=== PATIENT | female | born 1945 | race Caucasian/White ===

== ENCOUNTER 2016-09-14 17:16 | Emergency (ER) | payer MEDICARE, OTHER ==
[2012-12-07 23:44] VITALS: BMI 32.8
[2016-09-14 18:53] LABS: BASOPHILS 0.4 % (0.0-2.0); EOSINOPHILS 2.2 % (0-7); HEMATOCRIT 40.3 % (36.0-48.0); HEMOGLOBIN 12.7 g/dL (12-16); IMMATURE GRANULOCYTES 0.7 % (0-5); LYMPHOCYTES 29.5 % (15-50); MCH 29.7 pg (26.0-34.0); MCHC 31.5 g/dL (31.0-37.0); MCV 94.4 fL (80.0-100.0); MONOCYTES 5.7 % (2-11); NEUTROPHILS 61.5 % (40-80); PLATELET COUNT 252 10x3/uL (130-400); RBC 4.27 10x6/uL (4.00-5.40); RDW 14.7 % (11.5-14.5); WBC 10.3 10x3/uL (4.8-10.8)
[2016-09-14 19:18] LABS: ALBUMIN 3.5 g/dL (3.4-5.0); ANION GAP 9.5 mmol/L (8-16); BILIRUBIN - TOTAL 0.2 mg/dL (0.2-1.3); CARBON DIOXIDE 30.9 mmol/L (21.0-32.0); CREATININE - SERUM 1.2 mg/dL (0.6-1.3); POTASSIUM - SERUM 5.4 mmol/L (3.5-5.1); PROTEIN - SERUM 7.9 g/dL (6.4-8.2)
== END 2016-09-14 20:35 | disposition home or self-care (01) ==
LOC: D.ER 17:16
PROVIDERS: Emergency Medicine
DX: R53.1 Weakness (principal); I10 Essential (primary) hypertension

== ENCOUNTER 2016-11-04 00:41 | Emergency (ER) | payer MEDICARE, OTHER ==
[2012-12-07 23:44] VITALS: BMI 32.8
== END 2016-11-04 03:32 | disposition home or self-care (01) ==
LOC: D.ER 00:41
DX: I48.92 Unspecified atrial flutter (principal); I10 Essential (primary) hypertension; I44.30 Unspecified atrioventricular block

== ENCOUNTER 2017-03-07 09:38 | Observation (INO) | payer MEDICARE, OTHER ==
[~2017-03-07] VITALS: Ht 165.1 cm; Wt 65.9 kg
--- NOTE | ~2017-03-07 | HEMODYNAMI ---
PATIENT:ISAAC RICARDO MEDICAL RECORD: [id number] : 41 LOCATION[facility]# [id number] ADMISSION DATE: 03/07/17 Generatedon:03/08/20179:20 Patient name: ISAAC RICARDO Patient #: [id number] SSN: : 1945 Date of study: 03/08/2017 Page: Of Hemodynamic Procedure Report Patient Data Patient Demographics Procedure consent was obtained First Name: ISAAC Gender: Female Last Name: HALEIGH : 1945 [facility] Initial: S Age: 71 year(s) Patient #: [id number] Race: Unknown Additional ID: [id number] Contact details [address]: [address] [place] [address] State: [place] City: [place] Zip code: [address] Past Medical History Allergies: No known allergies Admission Admission Data Admission Date: 03/07/2017 Admission Time: 11:34 Room #: 2122 Height (in.): 65 BSA: 1.73 (m2) Height (cm.): 165.1 BMI: 24.13 (kg/m2) Weight (lbs.): 145 Weight (kg.): 65.77 Lab Results Lab Result Date: 03/08/2017 Lab Result Time: 0:00 Biochemistry Name Units Result Min Max Creatinine mg/dl 1 --(--*-)-- 0.6 1.3 CBC Name Units Result Min Max Hemoglobin g/dl 11.9 *-(----)-- 13.5 17.5 Procedure Procedure Types Cath Procedure Diagnostic Procedure [facility] w/Coronaries PCI Procedure Coronary Stent Initial Miscellaneous Procedures Moderate Sedation up to 30 minutes Peripheral Cath Diagnostic Procedure Cath Peripheral Four Vessel Arteriogram Procedure Description Procedure Date Procedure Date: 03/08/2017 Procedure Start Time: 8:46 Procedure End Time: 9:09 Procedure Staff Name Function Wendie Yo RT Monitor Chuy iMles RN Hotshot Superintendent Gustavo Dickinson MD Performing Physician Mallorie Werner RN Nurse Nahomy Lalo RT Scrub Procedure Data Cath Procedure Fluoroscopy Diagnostic fluoroscopy Total fluoroscopy Time: 5.3 time: 5.3 min min Diagnostic fluoroscopy Total fluoroscopy dose: 429 dose: 429 mGy mGy Contrast Material Contrast Material Type Amount (ml) Isovue 300 103 Entry Location Entry Primary Successful Side Size Upsize Upsize Entry Closure Succes sful Closure Location (Fr) 1 (Fr) 2 (Fr) Remarks Device Remarks Femoral Right 5 Fr 6 Fr Exoseal artery Short Estimated blood loss: 10 ml Diagnostic catheters Device Type Used For End Catheter Placement Cordis 5Fr JL 4.0 Left Coronary Catheter (MP) Angiography Cordis 5Fr 3DRC Catheter Right Coronary (MP) Angiography Cordis 5Fr 3DRC Catheter Cervical carotid (MP) (common) arteriography Cordis 5Fr Pigtail LV Angiography Catheter (MP) Procedure Complications No complications Procedure Medications Medication Administration Route Dosage Oxygen NC 2 l/min Heparin Flush Bag added to field 2 bags (1000units/500ml NS) Lidocaine 2% added to field 20 Versed I.V. 1 mg Fentanyl I.V. 50 mcg Versed I.V. 0.5 mg Fentanyl I.V. 25 mcg Fentanyl I.V. 25 mcg Versed I.V. 0.5 mg Heparin Bolus I.V. 4000 units Plavix P.O. 75 mg Hemodynamics Rest BSA: 1.73 (m2) HGB: 11.9 (g/dl) O2 Consumption: Estimated: 160.48 (ml/min) O2 Co nsumption indexed: Estimated:92.76 (ml/min/m) Heart Rate: 73 (bpm) Pressure Samples Time Site Value (mmHg) Purpose Heart Use Rate(bpm) 8:54 LV 159/17,21 Snapshot 78 8:55 LV 148/21,23 Pullback 75 8:55 AO 144/65(100) Pullback 75 Gradients Valve Time Site 1 Site 2 Mean SEP/DFP Peak To Heart Use (mmHg) (sec/min) Peak Rate (mmHg) (bpm) Aortic 8:55 LV AO 8 14 4 75 148/21,23 144/65(100) Calculations Valve P-P Mean Valve Index Valve Source Name Gradient Area Flow (cm2) Aortic 4 8 4 8 Snapshots Pre Cath Intra NCS Post Cath Vital Signs Time Heart Resp SPO2 etCO2 [id number] NIBP (mmHg) Rhythm Pain Sedation Rate (ipm) (%) (mmHg) (mmHg) Status Level (bpm) 8:30:53 74 15 100 0 0 Measuring NSR 0 (11) 10(A) , No pain 8:32:15 74 15 100 0 0 Time NSR 0 (11) 10(A) Exceeded , No pain 8:37:14 74 22 99 0 0 Measuring NSR 0 (11) 10(A) , No pain 8:37:51 73 22 100 0 0 Time NSR 0 (11) 10(A) Exceeded , No pain 8:40:55 70 17 100 0 0 164/72(131) NSR 0 (11) 10(A) , No pain 8:45:19 72 16 99 0 0 161/76(122) NSR 0 (11) 9(A) , No pain 8:49:37 75 15 98 0 0 150/83(115) NSR 0 (11) 9(A) , No pain 8:53:57 79 16 99 0 0 151/76(113) NSR 0 (11) 9(A) , No pain 8:58:20 76 16 99 0 0 148/72(114) NSR 0 (11) 9(A) , No pain 9:02:40 77 14 99 0 0 137/76(105) NSR 0 (11) 9(A) , No pain 9:06:54 80 15 99 0 0 142/82(113) NSR 0 (11) 10(A) , No pain Medications Time Medication Route Dose Verified Delivered Reason Notes Effectiveness by by 8:38:10 Oxygen NC 2 Gustavo Mallorie Per physician l/min St. Omar Werner RN, MD 8:38:18 Heparin Flush added 2 Gustavo Gustavo [facility] (1000units/500ml field MD LUNA NS) 8:38:28 Lidocaine 2% added 20ml Gustavo Gustavo used for to vial [place] procedure field MD LUNA 8:38:34 Versed I.V. 1 mg Gustavo Mallorie for sedation St. Omar Werner RN, MD 8:38:41 Fentanyl I.V. 50 Gustavo Mallorie for sedation mcg St. Omar Werner RN, MD 8:42:35 Versed I.V. 0.5 Gustavo Mallorie for sedation mg St. Omar Werner RN, MD 8:42:38 Fentanyl I.V. 25 Gustavo Mallorie for sedation mcg St. Omar Werner RN, MD 8:46:33 Fentanyl I.V. 25 Gustavo [place] for sedation mcg St. Omar Werner RN, MD 8:46:36 Versed I.V. 0.5 Gustavo [place] for sedation mg St. Omar Werner RN, MD 8:56:41 Heparin Bolus I.V. 4000 Gustavo Nobles for dose units St. Omar Werner RN anticoagulation verified MD with dr thompson 9:08:11 Plavix P.O. 75 mg Gustavo Mallorie for St. Omar Werner RN antiplatelet MD therapy Procedure Log Time Note 8:12:46 Chuy Miles RN sent for patient. Start room use. 8:21:55 Patient received from PCU to CCL 1 Alert and oriented. Tansferred to table in Supine position. 8:29:03 Vital chart was started 8:30:30 Warm blankets applied, and thiago hugger turned on for patient comfort. 8:30:31 Correct patient and procedure confirmed by team. 8:30:34 Signed procedure consent form obtained from patient. 8:30:35 ECG and BP/O2 sat monitors applied to patient. 8:31:55 Rhythm: sinus rhythm 8:31:58 Time tracking: Regular hours 8:32:02 Plan of Care:Hemodynamics will remain stable., Cardiac rhythm will remain stable., Comfort level will be maintained., Respiratory function will remain adequate., Patient/ family verbilizes understanding of procedure., Procedure tolerated without complication., Recovers from procedure without complications.. 8:32:06 Baseline sample Acquired. 8:32:16 H&P Date Dictated: 03/08/2017 Within 30 days and on chart.. 8:32:18 Pre-op teaching completed and patient verbalized understanding. 8:32:18 Pre-procedure instructions explained to patient. 8:32:19 Family in waiting room. 8:32:32 H&P Date Dictated: 03/08/2017 ER History on chart.. 8:32:38 Patient NPO since Midnight. 8:32:46 Patient allergic to No known allergies 8:32:48 Is the patient allergic to Iodine/contrast media? No. 8:32:52 Is patient on blood thinner?Yes 8:32:54 ACC The patient was administered the following blood thiners within the last 24 hours: ACCPlavix 8:32:58 Patient diabetic? No. 8:33:02 Previous problem with sedation/anesthesia? No ? 8:33:03 Snore? Yes 8:33:04 Sleep apnea? No 8:33:06 Opens mouth fully? Yes 8:33:06 Deviated septum? No 8:33:07 Sticks out tongue? Yes 8:33:16 Airway obstruction? No ? 8:33:19 Dentures? No ? 8:33:22 Pre procedure: right dorsailis pedis pulse 2+ Normal; easily identifiable; not easily obliterated 8:33:24 Patient pain scale 0/10 ?. 8:33:33 IV patent on arrival in left forearm with 0.9% NaCl at [facility]. 8:33:42 Lab results completed and on chart. 8:33:44 Right groin area was prepped with chlora-prep and draped in sterile fashion 8:33:46 Sharps counted by scrub and verified by R.N. 8:33:46 Alarms reviewed by R. N. 8:36:18 Lab Result : Hemoglobin 11.9 g/dl 8:36:18 Lab Result : Creatinine 1 mg/dl 8:36:44 Patient Height : 65 cm 8:36:46 Patient Weight : 145 kg 8:36:54 Use device set Femoral Dx 8:36:55 Acist Syringe opened to sterile field. 8:36:56 Medline Cath Pack opened to sterile field. 8:36:56 Bag Decanter opened to sterile field. 8:36:57 Terumo 5Fr [place] Sheath opened to sterile field. 8:36:58 Acist Hand Control opened to sterile field. 8:36:59 Acist Manifold opened to sterile field. 8:37:00 Tegaderm 4 x 4 opened to sterile field. 8:37:00 Diagnostic Infinity 5Fr Multipack catheter opened to sterile field. 8:37:34 Final Timeout: patient, procedure, and site verified with staff and physician. All members of the team are in agreement. 8:37:36 Right groin site verified by team. 8:37:38 Physical assessment completed. ASA score P 2 - A patient with mild systemic disease as per Gustavo Dickinson MD. 8:37:41 Sedation plan: IV Moderate Sedation Versed, Fentanyl 8:38:10 Oxygen 2 l/min NC was administered by Mallorie Werner RN; Per physician; 8:38:18 Heparin Flush Bag (1000units/500ml NS) 2 bags added to field was administered by Gustavo Dickinson MD; used for procedure; 8:38:28 Lidocaine 2% 20ml vial added to field was administered by Gustavo Dickinson MD; used for procedure; 8:38:34 Versed 1 mg I.V. was administered by Mallorie Werner RN; for sedation; 8:38:41 Fentanyl 50 mcg I.V. was administered by Mallorie Werner RN; for sedation; 8:41:08 Zero performed for pressure channel P1 8:42:35 Versed 0.5 mg I.V. was administered by Mallorie Werner RN; for sedation; 8:42:38 Fentanyl 25 mcg I.V. was administered by Mallorie Werner RN; for sedation; 8:46:13 Procedure started. 8:46:14 Full Disclosure recording started 8:46:23 Local anesthetic to right femoral artery with Lidocaine 2% by Gustavo Dickinson MD.INITIAL ACCESS ONLY 8:46:33 Fentanyl 25 mcg I.V. was administered by Mallorie Werner RN; for sedation; 8:46:36 Versed 0.5 mg I.V. was administered by Mallorie Werner RN; for sedation; 8:46:48 A 5 Fr sheath was inserted into the Right Femoral artery 8:47:15 A Cordis 5Fr JL 4.0 Catheter (MP) was advanced over the wire and used for Left Coronary Angiography. 8:49:43 Catheter removed. 8:49:57 A Cordis 5Fr 3DRC Catheter (MP) was advanced over the wire and used for Right Coronary Angiography. 8:50:55 A Cordis 5Fr 3DRC Catheter (MP) was advanced over the wire and used for Cervical carotid (common) arteriography. 8:51:13 Terumo 6Fr [place] Sheath opened to sterile field. 8:51:14 Merit BasixCompak Inflation Kit opened to sterile field. 8:53:01 Catheter removed. 8:53:24 Vieyra Whisper J 300cm 0.014 guide wire opened to sterile field. 8:53:49 A Cordis 5Fr Pigtail Catheter (MP) was advanced over the wire and used for LV Angiography. 8:55:02 LV gram done using NELSON 8:55:07 EF : 55 % 8:55:11 Injector settings: Ml/sec: 10, Volume: 20, 8:55:15 Catheter removed. 8:55:39 Sheath upsized to a 6 Fr Short. 8:55:53 6 Fr HS I guide catheter was inserted over the wire 8:55:59 Medtronic Launcher 6Fr HS I guide catheter opened to sterile field. 8:56:41 Heparin Bolus 4000 units I.V. was administered by Mallorie Werner RN; for anticoagulation; dose verified with dr thompson 8:58:23 Whisper wire advanced. 9:02:23 Inflation Number: 1 A [place] OTW 3.0 x 12 stent was prepped and advanced across the Mid RCA. The stent was deployed at 14 EDSON for 0:29 (min:sec). 9:02:40 Stent catheter was removed intact over wire. 9:02:41 Guide catheter removed. 9:02:41 Balloon removed over the wire. 9:02:53 Cordis 6Fr Exoseal opened to sterile field. 9:03:03 Sheath removed intact; hemostasis achieved with Exoseal to the Right Femoral artery. 9:03:05 Procedure ended.(Physican Out) 9:03:15 Fluoroscopy time 05.30 minutes. 9:03:19 Fluoroscopy dose: 429 mGy 9:03:19 Flurop Dose total: 429 9:03:23 Contrast amount:Isovue 300 103ml. 9:03:25 Sharps counted by scrub and verified by R.N. 9:03:27 Insertion/operative site no bleeding no hematoma. 9:03:30 Post-op/insertion site Right Femoral artery dressed using a 4 x 4 and Tegaderm. 9:03:33 Post right femoral artery:stable, clean and dry 9:03:36 Post Procedure Pulses reassessed and unchanged 9:03:39 Post-procedure physical assessment completed. ASA score P 2 - A patient with mild systemic disease as per Gustaov Dickinson MD. 9:03:41 Post procedure rhythm: unchanged. 9:03:44 Estimated blood loss: 10 ml 9:03:45 Patient needs reinforcement of post procedure teaching. 9:03:45 Post procedure instruction explained to patient.Patient verbalizes understanding. 9:04:26 Procedure type changed to Cath procedure, Diagnostic procedure, LHC, LHC w/Coronaries, PCI procedure, Coronary Stent Initial, Miscellaneous Procedures, Moderate Sedation up to 30 minutes, Peripheral Cath Diagnostic Procedure, Cath Peripheral, Four Vessel Arteriogram 9:04:38 Procedure Complication : No complications 9:04:41 Procedure and supply charges have been captured, reviewed, submitted and are correct. 9:07:02 Merit 260 J wire (No Cost) opened to sterile field. 9:07:08 See physician's report for complete and final results. 9:08:11 Plavix 75 mg P.O. was administered by Mallorie Werner RN; for antiplatelet therapy; 9:09:01 Femstop placed over the right femoral artery at 150 mmHg. Hemostasis achieved. 9:09:01 Post right femoral artery:hematoma 9:09:15 Vital chart was stopped 9:09:17 Report given to PCU. 9:09:21 Patient transfered to PCU with Bed. 9:09:28 Full Disclosure recording stopped 9::28 Procedure ended. 9:09:31 End room use (Document Last) Intervention Summary Intervention Notes Time ActionType Lesion and Equipment Action# Pressure Duration Attributes Used 9:02:23 Place stent Mid RCA [place] OTW 1 14 00:29 3.0 x 12 stent Device Usage Item Name Manufacture Quantity Catalog Hospital Part Current Minimal Lot# / Number Charge Number Stock Stock Serial# Code Acist Acist 1 26626 [id number] 629320 514911 20 Syringe Medical Systems Inc Bag Microtek 1 2002S 440556 52279 022967 5 Teikon [employer] Inc. Medline Cardinal 1 [id number] 283999 39821 990606 5 Cath Pack Health Terumo 5Fr Terumo 1 [id number] 536729 273019 527330 40 [place] Sheath Acist Hand Acist 1 87561 670841 157211 229418 5 CloudVolumes Medical Systems Inc Acist Acist 1 14450 926615 827264 028433 5 ExaDigm Medical Systems Inc Diagnostic Cardinal 1 AE1600 695702 82006 534780 30 MTA [employer] Lab 5Fr Multipack catheter Tegaderm 4 3M 1 1626W 473918 601299 191801 5 x 4 Cordis 5Fr Cardinal 1 100172 5 JL 4.0 Health Catheter (MP) Cordis 5Fr Cardinal 1 320736 5 3DRC Health Catheter (MP) Terumo 6Fr Terumo 1 ONO812 349708 689863 764737 40 [place] Sheath Merit Merit 1 [id number] 748860 614664 896514 15 BasixCompak Medical Inflation Kit Vieyra Vieyra 1 [id number] 942599 075887 555085 5 Whisper J Vascular 300cm 0.014 guide wire Cordis 5Fr Cardinal 1 540649 5 Pigtail Health Catheter (MP) Medtronic Medtronic 1 [id number] 718762 30612 752438 1 Launcher 6Fr HS I guide catheter Lorenzo OTW Medtronic 1 [id number] 112326 222410 210329 5 [id number] 3.0 x 12 stent Cordis 6Fr Cardinal 1 EX600 986358 718172 910075 10 [facility] [employer] [facility] Merit 260 J Unknown 1 0 0 wire (No Cost) Signature Audit [place] Stage Time Signature Unsigned Intra-Procedure 03/08/2017 Wendie Yo 9:09:48 AM Counts RT(R) RT(R) 03/08/2017 9:19:43 AM Intra-Procedure 03/08/2017 Wendie 9:20:48 AM Counts RT(R) Signatures Monitor : Wendie Signature : Counts RT Date : Time : [address] [place] [address]
[2017-03-07 10:00] LABS: BASOPHILS 0.4 % (0-2); EOSINOPHILS 3.4 % (0-7); HEMATOCRIT 37.6 % (36.0-48.0); HEMOGLOBIN 11.9 g/dL (12-16); IMMATURE GRANULOCYTES 0.2 % (0-5); LYMPHOCYTES 30.1 % (15-50); MCH 29.2 pg (26.0-34.0); MCHC 31.6 g/dL (31.0-37.0); MCV 92.2 fL (80.0-100.0); MEAN PLATELET VOLUME 9.9 fL (7.4-10.4); MONOCYTES 7.2 % (2-11); NEUTROPHILS 58.7 % (40-80); PLATELET COUNT 221 10x3/uL (130-400); RBC 4.08 10x6/uL (4.00-5.40); RDW 14.6 % (11.5-14.5); WBC 8.5 10x3/uL (4.8-10.8)
[2017-03-07 10:13] LABS: ALKALINE PHOSPHATASE 119 U/L (46-116); ALT (SGPT) 18 U/L (10-68); BILIRUBIN - TOTAL 0.29 mg/dL (0.2-1.3); CALC OSMOLALITY 282 mosm/kg (275-300); CALCIUM 8.9 mg/dL (8.5-10.1); CARBON DIOXIDE 29.1 mmol/L (21.0-32.0); CHLORIDE - SERUM 106 mmol/L (98-107); GLUCOSE 132 mg/dL (74-106); POTASSIUM - SERUM 4.4 mmol/L (3.5-5.1); PROTEIN - SERUM 7.1 g/dL (6.4-8.2); SODIUM 140 mmol/L (136-145); UREA NITROGEN 17 mg/dL (7-18); eGFR NON AFRICAN AMERICAN 58 mL/min (90-120)
[2017-03-07 10:24] LABS: CKMB 0.4 U/L (0.0-3.6); CREATINE KINASE 26 UL (21-215)
[2017-03-07 10:25] LABS: TROPONIN-I < 0.017 ng/mL (0.000-0.060)
[2017-03-07] MEDS ORDERED: K-DUR20 MEQ PO (12:54)
[2017-03-07] MEDS ORDERED: BUPROPION XL300 MG PO (12:55)
[2017-03-07] MEDS ORDERED: TENORMIN25 MG PO (12:56)
[2017-03-07] MEDS ORDERED: LANOXIN125 MCG PO (12:57)
[2017-03-07] MEDS ORDERED: NORTRIPTYLINE H50 MG PO (12:58)
[2017-03-07] MEDS ORDERED: BAYER CHEWABLE81 MG PO (13:00)
[2017-03-07] MEDS ORDERED: XANAX0.25 MG PO (13:00)
[2017-03-07] MEDS ORDERED: PROTONIX20 MG PO (13:04)
[2017-03-07 13:11] VITALS: Ht 165.1 cm; Wt 65.9 kg
--- NOTE | 2017-03-07 13:21 | NUR ---
RECIEVED FROM ER. ALERT AND ORIENTED. IV TO LEFT FA. TELELEMERTY SHOWS SB 59 ORIENTED TO ROOM . SR UP WITH CALL LIGHT IN REACH
[2017-03-07 15:33] LABS: TROPONIN-I 0.093 ng/mL (0.000-0.060)
[2017-03-07 16:00] VITALS: BP 133/67
--- NOTE | 2017-03-07 19:30 | NUR ---
RECEIVED PT IN BED AAOX4 RESP UNLABORED DENIES ANY PAIN OR DISCOMFORT AT THIS TIME
[2017-03-07 20:59] LABS: TROPONIN-I 0.512 ng/mL (0.000-0.060)
[2017-03-07 21:40] VITALS: BP 179/72
[2017-03-07] MEDS ORDERED: PLAVIX75 MG PO (22:34)
[2017-03-07] MEDS ORDERED: TIMOPTIC 0.5 % O5 ML EACH EYE (22:34)
[2017-03-08 04:05] LABS: TROPONIN-I 0.531 ng/mL (0.000-0.060)
[2017-03-08 04:36] VITALS: BP 163/59
--- NOTE | 2017-03-08 07:20 | NUR ---
ASSESSMENT DONE. DENIES NEEDS.
[2017-03-08 07:36] LABS: BASOPHILS 0.5 % (0-2); EOSINOPHILS 2.3 % (0-7); HEMATOCRIT 36.2 % (36.0-48.0); HEMOGLOBIN 11.5 g/dL (12-16); IMMATURE GRANULOCYTES 0.4 % (0-5); LYMPHOCYTES 18.9 % (15-50); MCH 29.1 pg (26.0-34.0); MCHC 31.8 g/dL (31.0-37.0); MCV 91.6 fL (80.0-100.0); MEAN PLATELET VOLUME 10.3 fL (7.4-10.4); MONOCYTES 7.9 % (2-11); PLATELET COUNT 223 10x3/uL (130-400); RBC 3.95 10x6/uL (4.00-5.40); RDW 14.7 % (11.5-14.5); WBC 8.3 10x3/uL (4.8-10.8)
[2017-03-08 07:39] LABS: ANION GAP 12.9 mmol/L (8-16); CALCIUM 8.9 mg/dL (8.5-10.1); CARBON DIOXIDE 27.4 mmol/L (21.0-32.0); POTASSIUM - SERUM 4.3 mmol/L (3.5-5.1)
[2017-03-08 08:00] VITALS: BP 176/61
--- NOTE | 2017-03-08 08:30 | NUR ---
TO TAG MARKER PER BED
--- NOTE | 2017-03-08 09:15 | NUR ---
RETURN FROM CATH FEMSTOP TO RT GROIN, HEMATOMA NOTED. PULSE PALP.
--- NOTE | 2017-03-08 09:34 | NUR ---
BACK FROM SAND ANALYST. AT BS. CALL LIGHT IN REACH. WILL MONITOR.
--- NOTE | 2017-03-08 10:30 | NUR ---
FEMOSTOP REMOVED. DRSG APPLYED.
[2017-03-08] MEDS ORDERED: ULTRAM50 MG PO (11:38)
[2017-03-08 12:46] VITALS: BP 119/55
--- NOTE | 2017-03-08 14:10 | NUR ---
UP TO BR. REMAINS AT SIDE.
--- NOTE | 2017-03-08 14:56 | NUR ---
DC AND RX GIVEN TO PT AND
--- NOTE | 2017-03-08 15:04 | NUR ---
DC HOME PER PERSONAL CAR.
--- NOTE | 2017-03-09 16:11 | DS ---
PATIENT:ISAAC RICARDO :41 MEDICAL RECORD: [id number] DISCHARGE SUMMARY ADMISSION DATE: 03/07/17 DISCHARGE DATE: 03/08/17 PROBLEM LIST: 1. Acute coronary syndrome/non-ST elevation myocardial infarction. 2. History of atrial fibrillation. 3. Transient ischemic attack. 4. Dyslipidemia. BRIEF HISTORY AND HOSPITAL COURSE: Admitted with TIA, as well as acute coronary syndrome type symptomatology, underwent angiography, 4-vessel, no significant carotid disease, she will underwent stent throughout, we will need stenting to start a later date. Discharged home in good condition with addition of Plavix, which will be required for a year, given the medicated stent. TRANSINT:[id number] Voice Confirmation ID: [id number] DOCUMENT ID: [id number] PAULINA BACH MD at 1611 CC: [id number] DICTATION DATE: 03/08/17 1022 CERTIFIED OPTICIAN: 03/09/17 0057 DIS IN 03/08/17 [address] [place] [address]
--- NOTE | 2017-03-09 16:11 | OP ---
PATIENT NAME: ISAAC RICARDO MEDICAL RECORD: [id number] :41 LOCATION:D.M2 D.2 ADMISSION DATE:03/07/17 SURGEON: PAULINA BACH MD DATE OF OPERATION: 03/08/2017 PROCEDURES: Left heart catheterization, selective coronary angiography, 4-vessel arteriography, right femoral artery approach. CATHETERS: A 5-Congolese sheath, 5/4 left and right Teresa, 5/4 pig. The procedure was well tolerated and we proceeded immediately to PTCA stenting of the right coronary after procedure was finished. FINDINGS: Left ventriculography, 30-degree NELSON view shows mild inferior apical hypokinesis. Overall, LV function is preserved at 55% or better. CORONARY ANATOMY: LEFT MAIN: Left main is free of disease. LAD: LAD is free of disease, previous stenting is widely patent. CIRCUMFLEX: Circumflex at the distal end of the stent shows about 80% stenosis. RIGHT CORONARY ARTERY: Obviously an infarct-related artery with a tight 90% plus restenosis in the stent itself. FOUR-VESSEL ARTERIOGRAPHY: The left common carotid was selectively engaged. Left common carotid shows no evidence of significant stenosis. Left external carotid, no evidence of significant stenosis. Left internal carotid, no evidence of significant stenosis. Then, the right common carotid again was engaged. Right common carotid shows no evidence of significant stenosis. The right internal carotid has some tortuosity and some wall disease and no stenosis greater than 10%. Right external carotid is widely patent. Next, a 5-Congolese sheath was changed for a 6-Congolese sheath. A hockey-stick guide catheter provided excellent guide catheter support followed by a 300-cm Whisper wire was placed across the 90% plus restenosis to the right. This was followed by a 3.0 x 12 mm Aurora medicated stent up to 14 atmospheres. Final injection shows excellent resolution of 90% plus stenosis, no significant residual. LARISSA flow was 3 throughout the procedure. Heparin was used during the case. Sheath closed with ExoSeal device. TRANSINT:[id number] Voice Confirmation ID: [id number] DOCUMENT ID: [id number] PAULINA BACH MD at 1611 CC: [id number] DICTATION DATE: 03/08/17912 DRAWER FITTER: 03/08/17 1652 DIS IN 03/08/17 [facility] [address] [facility] [address]
--- NOTE | 2017-03-09 16:11 | HP ---
PATIENT: ISAAC RICARDO MEDICAL RECORD: [id number] ACCOUNT: [id number] LOCATION:[address] : 41 ADMISSION DATE: 03/07/17 HISTORY AND PHYSICAL EXAMINATION HISTORY OF PRESENT ILLNESS: A 71-year-old lady with known history of coronary artery disease, status post intervention quite some time ago, has been having intermittent chest tightness and pressure over probably the past 2-3 weeks, had rest symptomology yesterday. In addition, she has been having some visual changes not a classic amaurosis. She had one episode of near syncope and fall, has mild ecchymosis on the left side of the face. Evaluation by primary care showed no fracture. Cardiac enzymes subsequently elevated. We are asked to see her concerning her cardiovascular status. PAST MEDICAL HISTORY: Includes, 1. History of coronary disease as described above. 2. Hypertension. 3. Paroxysmal atrial fibrillation. 4. Gastroesophageal reflux disease. ALLERGIES: None known. MEDICATIONS: Typically include Protonix 20 every day, potassium supplementation, nortriptyline 50 q.h.s., Wellbutrin 300 every day, digoxin 0.125 every day, atenolol 25 every day. SOCIAL HISTORY: , lives here in [place]. Stays quite active. She takes care of her all ADLs. She is nonsmoker. REVIEW OF SYSTEMS: The patient reports easy bruising but reports no swollen glands. The patient reports no fever, no night sweats, no significant weight gain, no significant weight loss. No significant exercise tolerance. The patient reports no dry eyes, no irritation, no vision change. Patient reports no difficulty hearing and no ear pain. Patient reports no frequent nose bleeds or nose and sinus problems. Patient reports on arm pain on exertion. No shortness of breath while lying down. No history of heart murmur. Patient reports no cough, no wheezing or coughing up blood. Patient reports no abdominal pain, no vomiting. Normal appetite. No diarrhea and not vomiting blood. No nausea and no constipation. Patient reports no incontinence. No difficulty urinating. No hematuria. No increased frequency. Patient reports no muscle aches. No weakness, no arthralgias, no back pain. No swelling of the extremities. Patient reports no abnormal mole, no jaundice, no rashes. Reports no loss of consciousness. No weakness and no numbness. No seizures, dizziness, or headaches. The patient reports no depression, no sleep disturbance, feeling safe in a relationship and no alcohol abuse. Patient reports on fatigue. Reports no runny nose or sinus pressure. No itching, no hives, and no frequent sneezing. PHYSICAL EXAMINATION: GENERAL: Pleasant female in no acute distress. HEENT: Normocephalic, atraumatic. NECK: Left carotid bruit. HEART: Regular. II/ systolic ejection murmur. LUNGS: Good air excursion. ABDOMEN: Soft, nontender. HISTORY AND PHYSICAL [id number] ISAAC RICARDO EXTREMITIES: Pulses 2+. No edema. NEUROLOGIC: Grossly intact. IMPRESSION: 1. Acute coronary syndrome, non-ST elevation myocardial infarction. 2. Transient ischemic attack symptomology with left carotid bruit. PLAN: We will plan for diagnostic angiography as well as 4-vessel arteriography and intervention based on above. TRANSINT:[id number] Voice Confirmation ID: [id number] DOCUMENT ID: [id number] PAULINA BACH MD at 1611 CC: [id number] DICTATION DATE: 03/08/17720 HAMPER MAKER MACHINE: 03/08/17 0752 DIS IN 03/08/[address] [facility] [address] [place] [address]
== END 2017-03-08 15:05 | disposition home or self-care (01) ==
LOC: D.ER 09:38 → D.M2 11:34 → OBSVTIME 11:34 → D.M2 03-08 15:05
PROVIDERS: Family Medicine; ADMIT Internal Medicine Interventional Cardiology
DX: I21.4 Non-ST elevation (NSTEMI) myocardial infarction (principal); T82.855A Stenosis of coronary artery stent, initial encounter; Y84.0 Cardiac catheterization as the cause of abnormal reaction of the patient, or of later complication, without mention of misadventure at the time of the procedure; I25.10 Atherosclerotic heart disease of native coronary artery without angina pectoris; I10 Essential (primary) hypertension; I48.0 Paroxysmal atrial fibrillation; G45.9 Transient cerebral ischemic attack, unspecified; E78.5 Hyperlipidemia, unspecified; K21.9 Gastro-esophageal reflux disease without esophagitis
CPT/HCPCS: 93458; 36224; 36227; 36225; C9600

== ENCOUNTER 2017-04-13 07:51 | Outpatient (CLI) | payer MEDICARE, OTHER ==
[~2017-04-13] VITALS: Ht 165.1 cm; Wt 65.9 kg
--- NOTE | ~2017-04-13 | HEMODYNAMI ---
PATIENT:ISAAC RICARDO MEDICAL RECORD: [id number] : 41 LOCATION:[facility] ADMISSION DATE: 04/13/17 Generatedon:04/13/201710:20 Patient name: ISAAC RICARDO Patient #: [id number] SSN: [id number] : 1945 Date of study: 04/13/2017 Page: Of Hemodynamic Procedure Report Patient Data Patient Demographics Procedure consent was obtained First Name: ISAAC Gender: Female Last Name: HALEIGH : 1945 Middle Initial: FOREST Age: 71 year(s) Patient #: [id number] Race: SSN: [id number] Additional ID: [id number] Contact details Address: [address] [place] [address] State: [place] City: [place] Zip code: [address] Past Medical History Allergies: No known allergies Admission Admission Data Admission Date: 04/13/2017 Admission Time: 7:51 Arrival Date: 04/13/2017 Arrival Time: 10:00 Admit Source: Other Insurance Payor: Medicare Height (in.): 65 BSA: 1.73 (m2) Height (cm.): 165.1 BMI: 24.13 (kg/m2) Weight (lbs.): 145 Weight (kg.): 65.77 Lab Results Lab Result Date: 04/13/2017 Lab Result Time: 0:00 Biochemistry Name Units Result Min Max BUN mg/dl 21 --(----)-* 7 18 Creatinine mg/dl 1.1 --(--*-)-- 0.6 1.3 CBC Name Units Result Min Max Hemoglobin g/dl 12.6 -*(----)-- 13.5 17.5 Procedure Procedure Types Cath Procedure Diagnostic Procedure [facility] w/Coronaries PCI Procedure Coronary Stent Initial Miscellaneous Procedures Moderate Sedation up to 15 minutes Procedure Description Procedure Date Procedure Date: 04/13/2017 Procedure Start Time: 10:06 Procedure Staff Name Function Sampson Somers MD Performing Physician Chuy Miles RN Nurse Jessica Cheatham RT Scrub Deo Denny RT Monitor Indication Angina Procedure Data Cath Procedure Fluoroscopy Diagnostic fluoroscopy Total fluoroscopy Time: 2.1 time: 2.1 min min Diagnostic fluoroscopy Total fluoroscopy dose: dose: 102.35 mGy 102.35 mGy Contrast Material Contrast Material Type Amount (ml) Isovue 300 64 Diagnostic catheters Device Type Used For End Catheter Placement Cordis 5Fr Pigtail LV Angiography Catheter (MP) Cordis 5Fr 3DRC Catheter Right Coronary (MP) Angiography Procedure Medications Medication Administration Route Dosage Oxygen NC 2 l/min Heparin Flush Bag added to field 2 bags (1000units/500ml NS) 0.9% NaCl I.V. 100 ml/hr Fentanyl I.V. 50 mcg Versed I.V. 1 mg Fentanyl I.V. 50 mcg Versed I.V. 1 mg Heparin Bolus I.V. 4000 units Hemodynamics Rest BSA: 1.73 (m2) HGB: 12.6 (g/dl) O2 Consumption: Estimated: 155.36 (ml/min) O2 Co nsumption indexed: Estimated:89.8 (ml/min/m) Heart Rate: 66 (bpm) Snapshots Pre Cath Intra NCS Post Cath Vital Signs Time Heart Resp SPO2 NIBP (mmHg) Rhythm Pain Sedation Rate (ipm) (%) Status Level (bpm) 9:32:35 65 17 100 176/76(143) NSR 0 (11) 10(A) , No pain 9:36:57 64 18 99 159/79(133) NSR 0 (11) 10(A) , No pain 9:41:18 62 16 99 149/74(131) NSR 0 (11) 10(A) , No pain 9:45:40 64 18 99 149/74(116) NSR 0 (11) 10(A) , No pain 9:50:02 66 18 100 151/76(119) NSR 0 (11) 10(A) , No pain 9:54:24 70 17 100 147/73(123) NSR 0 (11) 10(A) , No pain 9:58:50 67 17 100 154/66(110) NSR 0 (11) 10(A) , No pain 10:03:06 67 18 100 137/73(110) NSR 0 (11) 10(A) , No pain 10:07:30 69 18 100 142/64(105) NSR 0 (11) 9(A) , No pain 10:11:55 69 18 100 133/64(111) NSR 0 (11) 9(A) , No pain 10:16:17 71 17 100 143/65(101) NSR 0 (11) 9(A) , No pain 10:18:04 71 17 100 144/66(109) NSR 0 (11) 9(A) , No pain Medications Time Medication Route Dose Verified Delivered Reason Notes Effectiveness by by 9:35:49 Oxygen NC 2 Chuy Chuy Per physician l/min Jd Miles RN RN 9:38:04 Heparin Flush added 2 Chuy Chuy used for Bag to bags Jd Miles RN procedure (1000units/500ml field RN NS) 9:38:16 0.9% NaCl I.V. 100 Chuy Chuy Per physician ml/hr Jd Miles RN RN 10:05:16 Fentanyl I.V. 50 Chuy Chuy for sedation mcg Jd Miles RN RN 10:05:22 Versed I.V. 1 mg Chuy Chuy for sedation Jd Miles RN RN 10:10:25 Fentanyl I.V. 50 Chuy Chuy for sedation mcg Jd Miles RN RN 10:10:30 Versed I.V. 1 mg Chuy Chuy for sedation Jd Miles RN RN 10:10:46 Heparin Bolus I.V. 4000 Chuy Chuy for units Jd Miles RN anticoagulation manager operating Log Time Note 9:10:19 Chuy Miles RN sent for patient. Start room use. 9:20:52 Diagnostic Cath Status : Elective 9:21:16 Indication : Angina 9:21:20 Time tracking: Regular hours 9:21:24 Plan of Care:Hemodynamics will remain stable., Cardiac rhythm will remain stable., Comfort level will be maintained., Respiratory function will remain adequate., Patient/ family verbilizes understanding of procedure., Procedure tolerated without complication., Recovers from procedure without complications.. 9:21:50 Informed consent obtained and on chart 9:22:23 Admit Source: Other 9:22:26 Patient Height : 165.1 cm 9:22:30 Patient Weight : 65.77 kg 9:22:36 Arrival Date: 04/13/2017 10:00:00 AM 9:22:42 Insurance Payor : Medicare 9:25:07 Lab Result : Hemoglobin 12.6 g/dl 9:25:07 Lab Result : Creatinine 1.1 mg/dl 9:25:07 Lab Result : BUN 21 mg/dl 9:25:18 Patient received from Pre/Post Procedure Room to CCL 3 Alert and oriented. Tansferred to table in Supine position. 9:25:20 Warm blankets applied, and thiago hugger turned on for patient comfort. 9:25:20 Correct patient and procedure confirmed by team. 9:25:21 ECG and BP/O2 sat monitors applied to patient. 9:31:17 Vital chart was started 9:32:26 Baseline sample Acquired. 9:32:29 Rhythm: sinus rhythm 9:32:31 Full Disclosure recording started 9:32:44 H&P Date Dictated: 04/08/2017 Within 30 days and on chart., H&P Addendum completed by physician on day of procedure. (MUST COMPLETE FOR ALL OUTPATIENTS). 9:32:45 Pre-procedure instructions explained to patient. 9:32:45 Pre-op teaching completed and patient verbalized understanding. 9:32:47 Family in waiting room. 9:32:48 Patient NPO since Midnight. 9:32:53 Is the patient allergic to Iodine/contrast media? No. 9:32:54 Was the patient premedicated? No 9:32:55 Is patient on blood thinner?Yes 9:32:59 ACC The patient was administered the following blood thiners within the last 24 hours: ACCPlavix 9:33:01 Patient diabetic? No. 9:33:03 Previous problem with sedation/anesthesia? No ? 9:33:13 Snore? Yes 9:33:14 Sleep apnea? No 9:33:14 Deviated septum? No 9:33:15 Opens mouth fully? Yes 9:33:16 Sticks out tongue? Yes 9:33:18 Airway obstruction? No ? 9:33:20 Dentures? No ? 9:33:24 Pre procedure: right dorsailis pedis pulse 1+ Palpable, but thready & weak; easily obliterated 9:33:26 Pre procedure: left dorsailis pedis pulse 1+ Palpable, but thready & weak; easily obliterated 9:33:30 Patient pain scale 0/10 ?. 9:33:36 IV patent on arrival in right wrist with 0.9% NaCl at [facility]. 9:33:39 Lab results completed and on chart. 9:33:45 Right groin area was prepped with chlora-prep and draped in sterile fashion 9:33:47 Alarms reviewed by R. N. 9:33:47 Sharps counted by scrub and verified by R.N. 9:35:49 Oxygen 2 l/min NC was administered by Chuy Miles RN; Per physician; 9:38:04 Heparin Flush Bag (1000units/500ml NS) 2 bags added to field was administered by Chuy Miles RN; used for procedure; 9:38:16 0.9% NaCl 100 ml/hr I.V. was administered by Chuy Miles RN; Per physician; 9:52:23 Zero performed for pressure channel P1 9:52:34 Zero performed for pressure channel P1 9:52:44 Zero performed for pressure channel P1 10:04:21 Physician arrived 10:04:22 --------ALL STOP TIME OUT------ 10:04:23 Final Timeout: patient, procedure, and site verified with staff and physician. All members of the team are in agreement. 10:04:26 Right groin site verified by team. 10:04:42 Physical assessment completed. ASA score P 2 - A patient with mild systemic disease as per Sampson Somers MD. 10:04:46 Sedation plan: IV Moderate Sedation Versed, Fentanyl 10:05:16 Fentanyl 50 mcg I.V. was administered by Chuy Miles RN; for sedation; 10:05:22 Versed 1 mg I.V. was administered by Chuy Miles RN; for sedation; 10:06:01 Procedure started. 10:06:06 Local anesthetic to right femoral artery with Lidocaine 2% by Sampson Somers MD.INITIAL ACCESS ONLY 10:06:30 Use device set Femoral PCI 10:06:31 Acist Syringe opened to sterile field. 10:06:31 Acist Hand Control opened to sterile field. 10:06:32 Bag Decanter opened to sterile field. 10:06:32 Medline Cath Pack opened to sterile field. 10:06:32 Terumo 6Fr [place] Sheath opened to sterile field. 10:06:33 St Damian 260cm J .035 wire opened to sterile field. 10:06:33 Merit BasixCompak Inflation Kit opened to sterile field. 10:06:34 Acist Manifold opened to sterile field. 10:06:34 Tegaderm 4 x 4 opened to sterile field. 10:06:45 Use device set Multipack Set 10:06:47 Diagnostic Infinity 5Fr Multipack catheter opened to sterile field. 10:07:51 A Cordis 5Fr Pigtail Catheter (MP) was advanced over the wire and used for LV Angiography. 10:08:58 A Cordis 5Fr 3DRC Catheter (MP) was advanced over the wire and used for Right Coronary Angiography. 10:09:38 Cordis 6FR XBLAD 3.5 guide catheter opened to sterile field. 10:10:04 6 Fr xblad 3.5 guide catheter was inserted over the wire 10:10:08 whisper wire advanced. 10:10:20 LCA angiography performed. 10:10:25 Fentanyl 50 mcg I.V. was administered by Chuy Miles RN; for sedation; 10:10:30 Versed 1 mg I.V. was administered by Chuy Miles RN; for sedation; 10:10:46 Heparin Bolus 4000 units I.V. was administered by Chuy Miles RN; for anticoagulation; 10:14:19 Inflation Number: 1 A Cebolla OTW 2.5 x 12 stent was prepped and advanced across the Mid LAD. The stent was deployed at 17 EDSON for 0:07 (min:sec). 10:15:18 Procedure type changed to Cath procedure, Diagnostic procedure, LHC, LHC w/Coronaries, PCI procedure, Coronary Stent Initial, Miscellaneous Procedures, Moderate Sedation up to 15 minutes 10:15:49 Cordis 6Fr Exoseal opened to sterile field. 10:15:54 Procedure ended.(Physican Out) 10:16:04 Fluoroscopy time 02.10 minutes. 10:16:10 Fluoroscopy dose: 102.35 mGy 10:16:10 Flurop Dose total: 102.35 10:16:16 Contrast amount:Isovue 300 64ml. 10:16:17 Sharps counted by scrub and verified by R.N. 10:16:20 Insertion/operative site no bleeding no hematoma. 10:16:23 Post-op/insertion site Right Femoral artery dressed using a 4 x 4 and Tegaderm. 10:16:26 Post right femoral artery:stable 10:16:27 Post Procedure Pulses reassessed and unchanged 10:16:30 Post-procedure physical assessment completed. ASA score P 2 - A patient with mild systemic disease as per Sampson Somers MD. 10:16:34 Post procedure rhythm: unchanged. 10:16:37 Post procedure instruction explained to patient.Patient verbalizes understanding. 10:16:38 Procedure and supply charges have been captured, reviewed, submitted and are correct. 10:19:59 Report given to PCU. 10:20:02 Patient transfered to PCU with Bed. 10:20:25 Vital chart was stopped Intervention Summary Intervention Notes Time ActionType Lesion and Equipment Action# Pressure Duration Attributes Used 10:14:19 Place stent Mid LAD Cebolla OTW 1 17 00:07 2.5 x 12 stent Device Usage Item Name Manufacture Quantity Catalog Hospital Part Current Minimal Lot# / Number Charge Number Stock Stock Serial# Code Acist Acist 1 31717 [id number] 264883 [id number] 20 Syringe [employer] Inc Acist Hand Acist 1 66206 661758 075157 905923 5 Control [employer] Inc Bag Microtek 1 2002S 113981 06873 235866 5 Judys [employer] Medline Cardinal 1 [id number] 195944 50525 117007 5 Cath Pack Health Terumo 6Fr Terumo 1 [id number] 254485 765856 831281 [address] Damian 1 [id number] 364802 281243 162782 30 260cm J .035 wire Merit Merit 1 UP2127 864230 590859 554823 15 BasixSammie [employer] Medical Inflation Kit Acist Acist 1 29609 257774 439191 431728 5 Manifold Medical [employer] Inc Tegaderm 4 3M 1 1626W 563994 840968 619666 5 x 4 Diagnostic Cardinal 1 [id number] 589532 80801 890967 30 Infinity Health 5Fr Multipack catheter Cordis 5Fr Cardinal 1 369549 5 Pigtail Health Catheter (MP) Cordis 5Fr Cardinal 1 994252 5 3DRC Health Catheter (MP) Cordis 6FR Cardinal 1 [id number] 349217 409465 006008 10 XBLAD 3.5 Health guide catheter Cebolla OTW Medtronic 1 [id number] 524553 72246 614829 5 [id number] 2.5 x 12 stent Cordis 6Fr Cardinal 1 EX600 468177 305991 882456 10 [id number] [facility] Health Signature Audit [place] Stage Time Signature Unsigned Intra-Procedure 04/13/2017 Deo 10:20:21 AM Denisha RT (R) (CV) Signatures Monitor : Deo Signature : Denisha RT Date : Time : [id number] [place] [address]
--- NOTE | ~2017-04-13 | HEMODYNAMI ---
PATIENT:ISAAC RICARDO MEDICAL RECORD: [id number] : 41 LOCATION:[facility] D.[address] [facility]# [id number] ADMISSION DATE: 04/13/17 Generatedon:04/14/20179:58 Patient name: ISAAC RICARDO Patient #: [id number] SSN: [id number] : 1945 Date of study: 04/14/2017 Page: Of Hemodynamic Procedure Report Patient Data Patient Demographics Procedure consent was obtained First Name: ISAAC Gender: Female Last Name: HALEIGH : 1945 Middle Initial: FOREST Age: 71 year(s) Patient #: [id number] Race: SSN: [id number] Additional ID: [id number] Contact details Address: [address] [place] [address] State: [place] City: [place] Zip code: [address] Past Medical History Allergies: No known allergies Admission Admission Data Admission Date: 04/13/2017 Admission Time: 7:51 Arrival Date: 04/13/2017 Arrival Time: 10:00 Admit Source: Other Insurance Payor: Medicare Room #: D.2120 Height (in.): 65 BSA: 1.73 (m2) Height (cm.): 165.1 BMI: 24.13 (kg/m2) Weight (lbs.): 145 Weight (kg.): 65.77 Lab Results Lab Result Date: 04/13/2017 Lab Result Time: 0:00 Biochemistry Name Units Result Min Max BUN mg/dl 21 --(----)-* 7 18 Creatinine mg/dl 1.1 --(--*-)-- 0.6 1.3 CBC Name Units Result Min Max Hemoglobin g/dl 12.6 -*(----)-- 13.5 17.5 Procedure Procedure Types Cath Procedure PCI Procedure Coronary Stent Initial Miscellaneous Procedures Moderate Sedation up to 30 minutes Procedure Description Procedure Date Procedure Date: 04/14/2017 Procedure Start Time: 9:42 Procedure End Time: 9:57 Procedure Staff Name Function Jennifer Mike RT Scrub Juvencio Rosen RT Scrub Sampson Somers MD Performing Physician Benoit Cruz RN Nurse Wendie Yo RT Monitor Procedure Data Cath Procedure Fluoroscopy Diagnostic fluoroscopy Total fluoroscopy Time: 3.2 time: 3.2 min min Diagnostic fluoroscopy Total fluoroscopy dose: 196 dose: 196 mGy mGy Contrast Material Contrast Material Type Amount (ml) Isovue 300 43 Entry Location Entry Primary Successful Side Size Upsize Upsize Entry Closure Succes sful Closure Location (Fr) 1 (Fr) 2 (Fr) Remarks Device Remarks Femoral Left 6 Fr Exoseal artery Short Estimated blood loss: 10 ml Procedure Complications No complications Procedure Medications Medication Administration Route Dosage 0.9% NaCl I.V. 100 ml/hr Oxygen NC 2 l/min Heparin Flush Bag added to field 2 bags (1000units/500ml NS) Versed I.V. 1 mg Fentanyl I.V. 25 mcg Heparin Bolus I.V. 4000 units Hemodynamics Rest BSA: 1.73 (m2) HGB: 12.6 (g/dl) O2 Consumption: Estimated: 156.22 (ml/min) O2 Co nsumption indexed: Estimated:90.3 (ml/min/m) Heart Rate: 67 (bpm) Snapshots Pre Cath Intra NCS Post Cath Vital Signs Time Heart Resp SPO2 etCO2 [id number] NIBP (mmHg) Rhythm Pain Sedation Rate (ipm) (%) (mmHg) (mmHg) Status Level (bpm) 9:33:31 66 21 100 0 0 137/65(112) NSR 0 (11) 10(A) , No pain 9:37:52 67 16 100 0 0 126/62(101) NSR 0 (11) 10(A) , No pain 9:42:05 69 16 100 0 0 134/67(102) NSR 0 (11) 9(A) , No pain 9:46:23 70 18 99 0 0 125/66(98) NSR 0 (11) 9(A) , No pain 9:51:22 76 17 99 0 0 Measuring NSR 0 (11) 9(A) , No pain 9:51:30 76 17 99 0 0 150/78(111) NSR 0 (11) 10(A) , No pain 9:55:51 74 21 99 0 0 166/76(134) NSR 0 (11) 10(A) , No pain Medications Time Medication Route Dose Verified Delivered Reason Notes Effectiveness by by 9:32:49 0.9% NaCl I.V. 100 Benoit Benoit Per physician ml/hr Nancy Cruz RN RN 9:33:06 Oxygen NC 2 Benoit Benoit Per physician l/min Nancy Cruz RN RN 9:33:57 Heparin Flush added 2 Benoit Benoit used for Bag to bags Nancy Cruz procedure (1000units/500ml field RN RN NS) 9:34:29 Versed I.V. 1 mg Benoit Benoit for sedation Nancy Cruz RN RN 9:35:34 Fentanyl I.V. 25 Benoit Benoit for sedation mcg Nancy Cruz RN RN 9:47:11 Heparin Bolus I.V. 4000 Benoit Benoit for units Nancy Cruz anticoagulation RN dean of girls Log Time Note 8:58:00 Patient Height : 65 cm 8:58:00 Patient Weight : 145 kg 8:58:29 Juvencio Rosen RT(R) sent for patient. Start room use. 8:58:30 Time tracking: Regular hours 8:58:39 Plan of Care:Hemodynamics will remain stable., Cardiac rhythm will remain stable., Comfort level will be maintained., Respiratory function will remain adequate., Patient/ family verbilizes understanding of procedure., Procedure tolerated without complication., Recovers from procedure without complications.. 9:09:51 Patient received from PCU to CCL 1 Alert and oriented. Tansferred to table in Supine position. 9:09:52 Warm blankets applied, and thiago hugger turned on for patient comfort. 9:09:52 Correct patient and procedure confirmed by team. 9:09:54 Signed procedure consent form obtained from patient. 9:09:55 ECG and BP/O2 sat monitors applied to patient. 9:09:57 Full Disclosure recording started 9:10:18 IV right wrist D/C'd due to infiltration. 9:21:04 Rhythm: sinus rhythm 9:21:10 H&P Date Dictated: 04/13/2017 Within 30 days and on chart.. 9:21:12 Pre-procedure instructions explained to patient. 9:21:12 Pre-op teaching completed and patient verbalized understanding. 9:21:16 Family in patients room. 9:21:17 Patient NPO since Midnight. 9:21:20 Is the patient allergic to Iodine/contrast media? No. 9:21:22 Is patient on blood thinner?Yes 9:21:25 ACC The patient was administered the following blood thiners within the last 24 hours: ACCPlavix 9:21:28 Patient diabetic? No. 9:21:31 Patient not . Patient is over age 55. 9:21:33 Previous problem with sedation/anesthesia? No ? 9:21:34 Snore? Yes 9:21:36 Sleep apnea? No 9:21:37 Deviated septum? No 9:21:38 Opens mouth fully? Yes 9:21:39 Sticks out tongue? Yes 9:21:41 Airway obstruction? No ? 9:21:43 Dentures? No ? 9:21:56 Pre procedure: left dorsailis pedis pulse 1+ Palpable, but thready & weak; easily obliterated 9:22:00 Patient pain scale 0/10 ?. 9:22:03 Lab results completed and on chart. 9:27:33 IV started by Benoit Cruz RN inright antecubital with a 20 gauge IV catheter with 0.9% NaCl at KVO. 9:27:37 Left groin area was prepped with chlora-prep and draped in sterile fashion 9:27:38 Alarms reviewed by R. N. 9:27:39 Sharps counted by scrub and verified by R.N. 9:29:22 Final Timeout: patient, procedure, and site verified with staff and physician. All members of the team are in agreement. 9:29:24 Left groin site verified by team. 9:29:29 Physical assessment completed. ASA score P 2 - A patient with mild systemic disease as per Sampson Somers MD. 9:29:33 Sedation plan: IV Moderate Sedation Versed, Fentanyl 9:29:48 Use device set Femoral PCI 9:29:49 Acist Syringe opened to sterile field. 9:29:49 Acist Hand Control opened to sterile field. 9:29:50 Bag Decanter opened to sterile field. 9:29:50 Medline Cath Pack opened to sterile field. 9:29:51 Terumo 6Fr [place] Sheath opened to sterile field. 9:29:51 St Damian 260cm J .035 wire opened to sterile field. 9:29:52 Merit BasixCompak Inflation Kit opened to sterile field. 9:29:52 Acist Manifold opened to sterile field. 9:29:53 Tegaderm 4 x 4 opened to sterile field. 9:30:01 Vieyra Whisper J 300cm 0.014 guide wire opened to sterile field. 9:32:24 Vital chart was started 9:32:49 0.9% NaCl 100 ml/hr I.V. was administered by Benoit Cruz RN; Per physician; 9:33:06 Oxygen 2 l/min NC was administered by Benoit Cruz RN; Per physician; 9:33:57 Heparin Flush Bag (1000units/500ml NS) 2 bags added to field was administered by Benoit Cruz RN; used for procedure; 9:34:02 Baseline sample Acquired. 9:34:29 Versed 1 mg I.V. was administered by Benoit Cruz RN; for sedation; 9:35:34 Fentanyl 25 mcg I.V. was administered by Benoit Cruz RN; for sedation; 9:36:28 Cordis 6FR XB 3.5 guide catheter opened to sterile field. 9:40:15 22g IV Catheter opened to sterile field. 9:40:15 22g IV Catheter opened to sterile field. 9:40:16 20g IV Catheter opened to sterile field. 9:42:45 Procedure started. 9:42:52 Local anesthetic to left femerol artery with Lidocaine 2% by Sampson Somers MD.INITIAL ACCESS ONLY 9:43:28 A 6 Fr Short sheath was inserted into the Left Femoral artery 9:44:07 6 Fr XB 3.5 guide catheter was inserted over the wire 9:45:02 Whisper wire advanced. 9:47:11 Heparin Bolus 4000 units I.V. was administered by Benoit Cruz RN; for anticoagulation; 9:47:11 Inflation number: 1 A Mozec Rx 2.5 x 14 balloon was prepped and advanced across the Mid CX, then inflated to 17 EDSON for 0:06 (min:sec). 9:47:24 Inflation number: 2 The Mozec Rx 2.5 x 14 balloon was reinflated across the Mid CX, to 17 EDSON for 0:06 (min:sec). 9:47:47 Inflation number: 3 The Mozec Rx 2.5 x 14 balloon was reinflated across the Mid CX, to 17 EDSON for 0:16 (min:sec). 9:48:14 Balloon removed over the wire. 9:51:06 Inflation Number: 4 A [place] OTW 2.5 x 12 stent was prepped and advanced across the Mid CX. The stent was deployed at 17 EDSON for 0:10 (min:sec). 9:51:42 Inflation number: 5 The stent balloon was then re-inflated across the Mid CX to 21 EDSON for 0:08 (min:sec). 9:51:54 Stent catheter was removed intact over wire. 9:51:54 Wire removed. 9:51:55 Guide catheter removed. 9:52:02 Sheath removed intact; hemostasis achieved with Exoseal to the Left Femoral artery. 9:52:08 Procedure ended.(Physican Out) 9:52:20 Fluoroscopy time 03.20 minutes. 9:52:23 Flurop Dose total: 196 9:52:23 Fluoroscopy dose: 196 mGy 9:52:26 Contrast amount:Isovue 300 43ml. 9:52:28 Sharps counted by scrub and verified by R.N. 9:52:29 Insertion/operative site no bleeding no hematoma. 9:52:32 Post-op/insertion site Left Femoral artery dressed using a 4 x 4 and Tegaderm. 9:52:37 Post left femerol artery:stable, clean and dry 9:54:49 Post Procedure Pulses reassessed and unchanged 9:54:53 Post-procedure physical assessment completed. ASA score P 2 - A patient with mild systemic disease as per Sampson Somers MD. 9:54:55 Post procedure rhythm: unchanged. 9:54:58 Estimated blood loss: 10 ml 9:55:04 Post procedure instruction explained to patient.Patient verbalizes understanding. 9:55:04 Patient needs reinforcement of post procedure teaching. 9:55:09 Procedure type changed to Cath procedure, PCI procedure, Coronary Stent Initial, Miscellaneous Procedures, Moderate Sedation up to 30 minutes 9:55:14 Procedure Complication : No complications 9:55:16 See physician's report for complete and final results. 9:55:30 Cordis 6Fr Exoseal opened to sterile field. 9:57:11 Procedure and supply charges have been captured, reviewed, submitted and are correct. 9:57:19 Vital chart was stopped 9:57:23 Report given to PCU. 9:57:25 Patient transfered to PCU with Bed. 9:57:34 Procedure ended. 9:57:34 Full Disclosure recording stopped 9:57:37 End room use (Document Last) Intervention Summary Intervention Notes Time ActionType Lesion and Equipment Action# Pressure Duration Attributes Used 9:47:11 Inflate Mid CX Mozec Rx 1 17 00:06 balloon 2.5 x 14 balloon 9:47:24 Reinflate Mid CX Mozec Rx 2 17 00:07 balloon 2.5 x 14 balloon 9:47:47 Reinflate Mid CX Mozec Rx 3 17 00:16 balloon 2.5 x 14 balloon 9:51:06 Place stent Mid CX Spanaway OTW 4 17 00:10 2.5 x 12 stent 9:51:42 Reinflate Mid CX Lorenzo OTW 5 21 00:08 stent 2.5 x 12 balloon stent Device Usage Item Name Manufacture Quantity Catalog Hospital Part Current Minimal Lot# / Number Charge Number Stock Stock Serial# Code Acist Acist 1 [id number] 392545 258312 310834 20 Syringe Medical Systems Inc Acist Hand Acist 1 83170 837388 060830 576308 5 Control Medical Systems Inc Bag Microtek 1 2002S 529360 19161 000475 5 DecTransGaming Medical Inc. Medline Cardinal 1 [id number] 705317 27638 764063 5 Cath Pack Health Terumo 6Fr Terumo 1 QCK240 714503 492351 157425 [address] Damian 1 507641 036835 450007 793698 30 260cm J .035 wire Merit Merit 1 HF0660 088513 502643 338289 15 BasixCompaBR Supply Medical Inflation Kit Acist Acist 1 21993 158372 459675 308978 5 Manifold Medical Systems Inc Tegaderm 4 3M 1 1626W 521588 196491 259229 5 x 4 Vieyra Vieyra 1 [id number] 868459 115718 932872 5 Whisper J Vascular 300cm 0.014 guide wire Cordis 6FR Cardinal 1 [id number] 174695 644575 560946 2 XB 3.5 Health guide catheter 22g IV B. Laboy 2 [id number] 712371 096015 175543 5 Catheter 20g IV B. Laboy 1 9325361-53 809155 158852 181924 5 Catheter Mozec Rx Cardinal 1 [id number] 976170 54953 502780 5 UMOA84 2.5 x 14 Health balloon Spanaway OTW Medtronic 1 [id number] 643712 39305 872995 5 [id number] 2.5 x 12 stent Cordis 6Fr Cardinal 1 EX600 637360 766538 378989 10 [facility] Signature Audit [place] Stage Time Signature Unsigned Intra-Procedure 04/14/2017 Wendie 9:58:24 AM Counts RT(R) Signatures Monitor : Wendie Signature : Counts RT Date : Time : [address] [address]
--- NOTE | ~2017-04-13 | OP ---
PATIENT NAME: ISAAC RICARDO MEDICAL RECORD: [id number] :41 LOCATION:D.CAT ADMISSION DATE: SURGEON: CITLALLI YATES MD DATE OF OPERATION: 04/13/2017 PROCEDURES: 1. PTCA stent LAD. 2. Left heart catheterization. 3. Selective coronary angiography. 4. Left ventriculogram. 5. Left heart catheterization. PROCEDURE IN DETAIL: After informed consent was obtained and after a detailed explanation of risks, benefits as well as alternative therapies, the patient elected to proceed with angiogram and angioplasty. The right femoral area is prepped and draped in normal sterile fashion. The right femoral artery was cannulated via modified Seldinger technique with placement of a 6-Estonian sheath. All catheters exchanged through this sheath. FINDINGS: Left ventriculogram was performed in the standard 30-degree NELSON view reveals good cardiac wall motion throughout all segments. Overall ejection fraction 55% to 60%. SELECTIVE CORONARY ANGIOGRAPHY: 1. Left main showed no significant angiographic disease. 2. Left anterior descending has a 90% stenosis in the mid vessel. 3. Left circumflex has 80% to 90% stenosis in the mid vessel. 4. The right coronary has previously placed stents, these are widely patent. PTCA STENT OF THE LAD: The stent used was a 2.5 x 12 mm [place]. Result was 0% residual stenosis. OVERALL IMPRESSION: Successful percutaneous transluminal coronary angioplasty stent of the left anterior descending going from 80% initial stenosis to 0% residual. Plan for PTCA stent of the left circumflex in the near future. TRANSINT:[id number] Voice Confirmation ID: [id number] DOCUMENT ID: [id number] CITLALLI YATES MD CC: [id number] DICTATION DATE: 04/13/17 1023 TEXTILE ENGINEER: 04/13/17 1038 REG [facility] [address] [place] [address]
--- NOTE | ~2017-04-13 | DS ---
PATIENT:ISAAC BECERRA :41 MEDICAL RECORD: [id number] DISCHARGE SUMMARY ADMISSION DATE: 04/13/17 DISCHARGE DATE: DATE OF DISCHARGE: 04/14/2017 DISCHARGE DIAGNOSES: 1. PTCA stent left anterior descending and circumflex this admission. 2. Anginal symptomatology. 3. Hypertension. 4. Hyperlipidemia. HOSPITAL COURSE: Mrs. Becerra presents with anginal symptomatology, found to have significant disease of the LAD and circumflex, underwent successful PTCA stent of above territories, had an uneventful postop course. She was discharged home to follow up with [facility] in 1 month. TRANSINT:[id number] Voice Confirmation ID: [id number] DOCUMENT ID: [id number] CITLALLI YATES MD CC: [id number] DICTATION DATE: 04/14/1758 PROOFER: 04/14/17 1030 REG [facility] [address] [place] [address]
--- NOTE | ~2017-04-13 | OP ---
PATIENT NAME: ISAAC RICARDO MEDICAL RECORD: [id number] :41 LOCATION:D.M2 D.2120 ADMISSION DATE: SURGEON: CITLALLI YATES MD DATE OF OPERATION: 04/14/2017 PROCEDURES: 1. PTCA stent left circumflex. 2. Selective coronary angiography. INDICATION: Angina and coronary artery disease. PROCEDURE IN DETAIL: After informed consent was obtained and after detailed explanation of risks, benefits as well as alternative therapies, the patient elected to proceed with angiogram and angioplasty. The left femoral area was prepped and draped in normal sterile fashion. Left femoral artery was cannulated via modified Seldinger technique with placement of 6-Wol[place] sheath. All catheters exchanged through this sheath. FINDINGS: The left circumflex has 90% stenosis addressed with a 2.5 x 12 mm Lorenzo stent. Result was 0% residual stenosis. OVERALL IMPRESSION: Successful percutaneous transluminal coronary angioplasty stent of the left circumflex going from 90% initial stenosis to 0% residual stenosis. TRANSINT:[id number] Voice Confirmation ID: [id number] DOCUMENT ID: [id number] CITLALLI YATES MD CC: [id number] DICTATION DATE: 04/14/17 0957 RADIO CONTROL CRANE OPERATOR: 04/14/17 1011 REG [facility] [address] [place] [address]
[~2017-04-13 07:51] MED LIST: BAYER CHEWABLE81 MG PO; BUPROPION XL300 MG PO; K-DUR20 MEQ PO; LANOXIN125 MCG PO; NORTRIPTYLINE H50 MG PO; PLAVIX75 MG PO; PROTONIX20 MG PO; TENORMIN25 MG PO; TIMOPTIC 0.5 % O5 ML EACH EYE; ULTRAM50 MG PO; XANAX0.25 MG PO
[2017-04-13] MEDS ORDERED: FISH OIL 1,0001 CA1 PO (08:04)
[2017-04-13] MEDS ORDERED: CRANBERRY 400 M1 TA1 PO (08:04)
[2017-04-13 08:15] VITALS: BP 155/66; BMI 24.1
[2017-04-13 08:31] LABS: BASOPHILS 0.5 % (0-2); EOSINOPHILS 2.6 % (0-7); HEMATOCRIT 39.5 % (36.0-48.0); HEMOGLOBIN 12.6 g/dL (12-16); IMMATURE GRANULOCYTES 0.4 % (0-5); LYMPHOCYTES 29.6 % (15-50); MCH 29.4 pg (26.0-34.0); MCHC 31.9 g/dL (31.0-37.0); MCV 92.3 fL (80.0-100.0); MEAN PLATELET VOLUME 9.9 fL (7.4-10.4); MONOCYTES 6.3 % (2-11); NEUTROPHILS 60.6 % (40-80); PLATELET COUNT 244 10x3/uL (130-400); RBC 4.28 10x6/uL (4.00-5.40); RDW 14.9 % (11.5-14.5); WBC 10.3 10x3/uL (4.8-10.8)
[2017-04-13 08:49] LABS: ANION GAP 13.8 mmol/L (8-16); CALCIUM 9.4 mg/dL (8.5-10.1); CARBON DIOXIDE 26.5 mmol/L (21.0-32.0); CREATININE - SERUM 1.1 mg/dL (0.6-1.3); POTASSIUM - SERUM 4.3 mmol/L (3.5-5.1)
--- NOTE | 2017-04-13 10:45 | NUR ---
RECIEVED FROM BALL RACKER. V/S STABLE. RIGHT GROIN SOFT WITH DRSG DRY AND INTACT. SOFT TO TOUCH. TELEMERTY SHOWS SR. FAMILY AT BEDSIDE . SR UP WITH CALL LIGHT IN REACH. WILL MONITOR
--- NOTE | 2017-04-13 12:28 | NUR ---
LUING QUIETLY. RIGHT GROIN SOFT WITH DRSG DRY AND INTACK. PPP. V/S STABLE. AT BEDSIDE. SR UP WITH CALL LIGHT IN REACH. WILL MONITOR
[2017-04-13 16:10] VITALS: BP 174/77
[2017-04-13 16:45] VITALS: Ht 165.1 cm; Wt 65.9 kg
--- NOTE | 2017-04-13 16:54 | NUR ---
ASSESSMENT COMPLETE PT SITTING ON SIDE OF BED DENIES ANY NEEDS OR DISCOMFORT NAD NOTED
--- NOTE | 2017-04-13 17:59 | NUR ---
LYING QUIETLY. RIGHT GROIN SOFT WITH DRSG DRY AND INTACT. FAMILY AT BED SIDE. FOR CATH TOMORROW
[2017-04-13 19:00] VITALS: BP 163/64
--- NOTE | 2017-04-13 19:48 | NUR ---
ASSESSMENT COMPLETE, A&O. IV TO RIGHT ARM SL, SITE CLEAN AND DRY. DRSG TO RIGHT GROING, C/D/I. NO SWELLING OR BLEEDING NOTED, NO HEMATOMA NOTED. PEDAL PULSES PRESENT. PT DENIES PAIN OR NEEDS. BED LOW, CL IN REACH.
--- NOTE | 2017-04-14 00:37 | NUR ---
RESTING WITH EYES CLOSED, RESPERATIONS EVEN, NO S/S DISTRESS NOTED.
[2017-04-14 00:46] VITALS: BP 166/76
--- NOTE | 2017-04-14 04:15 | NUR ---
AIR TRAFFIC COORDINATOR AT BED SIDE TO OBTAIN VITALS, NO S/S DISTRESS NOTED.
[2017-04-14 05:12] VITALS: BP 118/43
[2017-04-14 08:14] VITALS: BP 134/56
--- NOTE | 2017-04-14 10:11 | NUR ---
ARRIVE TO ROOM VIA BED FROM NEW PATIENT ESCORT. ALER AND ORIENTED X4. BP-116/58, P-69, R-18, O2-96% RA. AT BEDSIDE. LT GROIN DRESSING CLEAN DRY INTACT. FREE FROM HEMATOMA. PULSES PALPABLE. SINUS RHTHYM 65bpm ON TELEMETRY. CONTINUE PLAN OF CARE. BED LOCKED AND LOW. CALL LIGHT IN REACH. TWO SIDERAILS UP.
[2017-04-14 12:05] VITALS: BP 116/58
--- NOTE | 2017-04-14 14:17 | NUR ---
ALERT AND ORIENTED X4. FREE FROM BLEEDING AFTER SITTING UP. DENIES PAIN OR SOB. AT BEDSIDE. DC RT AC IV TIP INTACT. DISCHARGE INSTRUCTIONS GIVEN VERBALLY AND WRITTEN. DISCHARGE PAPERS SIGNED ON CHART. ESCORT TO RIDE VIA WHEELCHAIR.
== END 2017-04-14 14:23 | disposition home or self-care (01) ==
LOC: D.M2 07:51 → D.CATH 07:51 → D.M2 11:02 → D.CATH 04-14 14:23
PROVIDERS: Internal Medicine Interventional Cardiology
DX: I25.119 Atherosclerotic heart disease of native coronary artery with unspecified angina pectoris (principal); I10 Essential (primary) hypertension; E78.5 Hyperlipidemia, unspecified; R55 Syncope and collapse; Z01.812 Encounter for preprocedural laboratory examination
CPT/HCPCS: 93458; C9600 ×2

== ENCOUNTER 2017-11-22 14:04 | Emergency (ER) | payer MEDICARE, OTHER ==
[2017-04-13 16:45] VITALS: BMI 24.1
[~2017-11-22 14:04] MED LIST changes: +CRANBERRY 400 M1 TA1 PO; +FISH OIL 1,0001 CA1 PO
[2017-11-22 14:58] LABS: BASOPHILS 0.4 % (0-2); EOSINOPHILS 3.4 % (0-7); HEMATOCRIT 40.8 % (36.0-48.0); HEMOGLOBIN 12.7 g/dL (12-16); IMMATURE GRANULOCYTES 0.2 % (0-5); LYMPHOCYTES 27.5 % (15-50); MCH 29.1 pg (26.0-34.0); MCHC 31.1 g/dL (31.0-37.0); MCV 93.6 fL (80.0-100.0); MEAN PLATELET VOLUME 10.6 fL (7.4-10.4); MONOCYTES 7.5 % (2-11); PLATELET COUNT 261 10x3/uL (130-400); RBC 4.36 10x6/uL (4.00-5.40); RDW 14.9 % (11.5-14.5); WBC 9.9 10x3/uL (4.8-10.8)
[2017-11-22 15:09] LABS: ALBUMIN 3.5 g/dL (3.4-5.0); ALKALINE PHOSPHATASE 135 U/L (46-116); ALT (SGPT) 28 U/L (10-68); BILIRUBIN - TOTAL 0.31 mg/dL (0.2-1.3); CALC OSMOLALITY 282 mosm/kg (275-300); CALCIUM 9.5 mg/dL (8.5-10.1); CARBON DIOXIDE 29.4 mmol/L (21.0-32.0); CHLORIDE - SERUM 104 mmol/L (98-107); CREATININE - SERUM 1.1 mg/dL (0.6-1.3); GLUCOSE 99 mg/dL (74-106); POTASSIUM - SERUM 4.7 mmol/L (3.5-5.1); PROTEIN - SERUM 7.9 g/dL (6.4-8.2); SODIUM 140 mmol/L (136-145); UREA NITROGEN 23 mg/dL (7-18); eGFR NON AFRICAN AMERICAN 51 mL/min (90-120)
[2017-11-22 15:13] LABS: CREATINE KINASE 30 UL (21-215); DIGOXIN 1.14 ng/mL (0.90-2.00)
[2017-11-22 15:14] LABS: TROPONIN-I < 0.017 ng/mL (0.000-0.060)
[2017-11-22 16:09] LABS: APPEARANCE CLEAR (CLEAR); BILIRUBIN NEGATIVE (NEGATIVE); COLOR YELLOW (YELLOW); EPITHELIAL CELLS OCC /hpf (0-5); GLUCOSE NEGATIVE (NEGATIVE); KETONE NEGATIVE (NEGATIVE); NITRITE NEGATIVE (NEGATIVE); PROTEIN NEGATIVE (NEGATIVE); UROBILINOGEN NORMAL (NORMAL); WHITE CELLS - URINE 0-5 /hpf (0-5)
== END 2017-11-22 17:27 | disposition home or self-care (01) ==
LOC: D.ER 14:04
PROVIDERS: Emergency Medicine; Nurse Practitioner Family
DX: R00.2 Palpitations (principal); Z86.79 Personal history of other diseases of the circulatory system; I10 Essential (primary) hypertension; R00.1 Bradycardia, unspecified; I44.0 Atrioventricular block, first degree

== ENCOUNTER 2018-02-19 15:31 | Observation (INO) | payer MEDICARE, OTHER ==
[~2018-02-19] VITALS: Ht 165.1 cm; Wt 59.5 kg
[2018-02-19] MEDS ORDERED: BETAPACE 80 MG80 MG PO ×2 (15:41→15:42)
[2018-02-19] MEDS ORDERED: ELIQUIS5 MG PO (15:41)
[2018-02-19 16:20] VITALS: BP 129/81
[2018-02-19 16:21] LABS: BASOPHILS 0.4 % (0-2); EOSINOPHILS 2.5 % (0-7); HEMATOCRIT 40.7 % (36.0-48.0); HEMOGLOBIN 12.8 g/dL (12-16); IMMATURE GRANULOCYTES 0.3 % (0-5); LYMPHOCYTES 29.7 % (15-50); MCHC 31.4 g/dL (31.0-37.0); MCV 92.3 fL (80.0-100.0); MEAN PLATELET VOLUME 10.9 fL (7.4-10.4); MONOCYTES 10.1 % (2-11); PLATELET COUNT 231 10x3/uL (130-400); RBC 4.41 10x6/uL (4.00-5.40); RDW 14.9 % (11.5-14.5)
[2018-02-19 16:39] LABS: ALBUMIN 3.2 g/dL (3.4-5.0); ALKALINE PHOSPHATASE 210 U/L (46-116); ALT (SGPT) 59 U/L (10-68); BILIRUBIN - TOTAL 0.28 mg/dL (0.2-1.3); CALC OSMOLALITY 283 mosm/kg (275-300); CALCIUM 9.3 mg/dL (8.5-10.1); CHLORIDE - SERUM 106 mmol/L (98-107); CREATININE - SERUM 0.8 mg/dL (0.6-1.3); GLUCOSE 91 mg/dL (74-106); POTASSIUM - SERUM 4.7 mmol/L (3.5-5.1); PROTEIN - SERUM 7.5 g/dL (6.4-8.2); SODIUM 141 mmol/L (136-145); UREA NITROGEN 20 mg/dL (7-18); eGFR NON AFRICAN AMERICAN 74 mL/min (90-120)
[2018-02-19 16:40] VITALS: BP 170/101
[2018-02-19 17:00] VITALS: BP 150/90
[2018-02-19 17:02] LABS: CKMB 0.6 U/L (0.0-3.6); CREATINE KINASE 17 UL (21-215); DIGOXIN 1.14 ng/mL (0.90-2.00); TROPONIN-I < 0.017 ng/mL (0.000-0.060)
[2018-02-19 17:35] VITALS: BP 172/90
[2018-02-19 18:20] VITALS: BP 160/85
[2018-02-19 23:27] LABS: CKMB 0.5 U/L (0.0-3.6); CREATINE KINASE 27 UL (21-215); TROPONIN-I < 0.017 ng/mL (0.000-0.060)
[2018-02-20] VITALS: BP 161/74
[2018-02-20 04:00] VITALS: BP 137/74
[2018-02-20 04:18] VITALS: BP 132/69; Ht 165.1 cm; Wt 59.5 kg
[2018-02-20] MEDS ORDERED: LIPITOR40 MG PO (04:40)
[2018-02-20 05:11] LABS: BASOPHILS 0.3 % (0-2); HEMATOCRIT 39.2 % (36.0-48.0); HEMOGLOBIN 12.3 g/dL (12-16); IMMATURE GRANULOCYTES 0.2 % (0-5); LYMPHOCYTES 29.9 % (15-50); MCH 28.5 pg (26.0-34.0); MCHC 31.4 g/dL (31.0-37.0); MEAN PLATELET VOLUME 10.9 fL (7.4-10.4); MONOCYTES 7.4 % (2-11); NEUTROPHILS 59.2 % (40-80); PLATELET COUNT 228 10x3/uL (130-400); RBC 4.31 10x6/uL (4.00-5.40); RDW 14.8 % (11.5-14.5); WBC 9.8 10x3/uL (4.8-10.8)
[2018-02-20 05:42] LABS: CALC OSMOLALITY 277 mosm/kg (275-300); CALCIUM 9.3 mg/dL (8.5-10.1); CARBON DIOXIDE 29.1 mmol/L (21.0-32.0); CHLORIDE - SERUM 107 mmol/L (98-107); CKMB 0.9 U/L (0.0-3.6); CREATINE KINASE 26 UL (21-215); CREATININE - SERUM 0.9 mg/dL (0.6-1.3); GLUCOSE 91 mg/dL (74-106); POTASSIUM - SERUM 4.5 mmol/L (3.5-5.1); SODIUM 138 mmol/L (136-145); TROPONIN-I < 0.017 ng/mL (0.000-0.060); UREA NITROGEN 19 mg/dL (7-18); eGFR NON AFRICAN AMERICAN 65 mL/min (90-120)
[2018-02-20 08:43] VITALS: BP 123/75
[2018-02-20 11:19] VITALS: BP 128/72
[2018-02-20 15:27] VITALS: BP 121/78
== END 2018-02-20 16:36 | disposition home or self-care (01) ==
LOC: EDBD 15:31 → D.ER 15:31 → D.EDHOLD 18:27 → D.M2 19:06 → OBSVTIME 02-20 16:35 → D.M2 02-20 16:36
PROVIDERS: Family Medicine
DX: I48.92 Unspecified atrial flutter (principal); T44.7X5A Adverse effect of beta-adrenoreceptor antagonists, initial encounter; R00.1 Bradycardia, unspecified; F41.8 Other specified anxiety disorders; I10 Essential (primary) hypertension; I25.10 Atherosclerotic heart disease of native coronary artery without angina pectoris

== ENCOUNTER 2018-03-17 16:17 | Emergency (ER) | payer MEDICARE, OTHER ==
[~2018-03-17] VITALS: Ht 165.1 cm; Wt 61.8 kg
[~2018-03-17 16:17] MED LIST changes: +BETAPACE 80 MG80 MG PO; +ELIQUIS5 MG PO; +LIPITOR40 MG PO
[2018-03-17 16:26] VITALS: Ht 165.1 cm; Wt 61.8 kg
[2018-03-17 17:30] LABS: BASOPHILS 0.3 % (0-2); EOSINOPHILS 1.9 % (0-7); HEMOGLOBIN 12.7 g/dL (12-16); IMMATURE GRANULOCYTES 0.3 % (0-5); LYMPHOCYTES 26.4 % (15-50); MCH 28.9 pg (26.0-34.0); MCHC 31.8 g/dL (31.0-37.0); MCV 91.1 fL (80.0-100.0); MEAN PLATELET VOLUME 10.4 fL (7.4-10.4); MONOCYTES 6.6 % (2-11); NEUTROPHILS 64.5 % (40-80); PLATELET COUNT 244 10x3/uL (130-400); RBC 4.39 10x6/uL (4.00-5.40); RDW 15.1 % (11.5-14.5); WBC 10.4 10x3/uL (4.8-10.8)
[2018-03-17 17:51] LABS: ALBUMIN 3.5 g/dL (3.4-5.0); ANION GAP 11.2 mmol/L (8-16); BILIRUBIN - TOTAL 0.41 mg/dL (0.2-1.3); CALCIUM 9.3 mg/dL (8.5-10.1); CARBON DIOXIDE 30.9 mmol/L (21.0-32.0); POTASSIUM - SERUM 5.1 mmol/L (3.5-5.1); PROTEIN - SERUM 8.1 g/dL (6.4-8.2)
[2018-03-17 21:00] LABS: ALBUMIN 3.5 g/dL (3.4-5.0); ALKALINE PHOSPHATASE 239 U/L (46-116); ALT (SGPT) 93 U/L (10-68); CALC OSMOLALITY 282 mosm/kg (275-300); CALCIUM 9.2 mg/dL (8.5-10.1); CARBON DIOXIDE 30.6 mmol/L (21.0-32.0); CHLORIDE - SERUM 103 mmol/L (98-107); CREATININE - SERUM 0.9 mg/dL (0.6-1.3); GLUCOSE 93 mg/dL (74-106); POTASSIUM - SERUM 5.2 mmol/L (3.5-5.1); PROTEIN - SERUM 7.6 g/dL (6.4-8.2); SODIUM 140 mmol/L (136-145); UREA NITROGEN 23 mg/dL (7-18); eGFR NON AFRICAN AMERICAN 65 mL/min (90-120)
[2018-03-17 21:08] LABS: TROPONIN-I < 0.017 ng/mL (0.000-0.060)
[2018-03-17] MEDS ORDERED: NORVASC10 MG PO (22:34)
[2018-03-17 23:52] VITALS: BP 188/92
== END 2018-03-17 23:53 | disposition home or self-care (01) ==
LOC: D.ER 16:17
PROVIDERS: Emergency Medicine; Family Medicine
DX: I10 Essential (primary) hypertension (principal); Z86.73 Personal history of transient ischemic attack (TIA), and cerebral infarction without residual deficits; R00.1 Bradycardia, unspecified; I44.0 Atrioventricular block, first degree

== ENCOUNTER 2018-03-25 20:39 | Emergency (ER) | payer MEDICARE, OTHER ==
[~2018-03-25] VITALS: Ht 165.1 cm; Wt 61.2 kg
[~2018-03-25 20:39] MED LIST changes: +NORVASC10 MG PO
[2018-03-25 20:41] VITALS: Ht 165.1 cm; Wt 61.2 kg
[2018-03-25 21:01] LABS: BASOPHILS 0.3 % (0-2); EOSINOPHILS 2.4 % (0-7); HEMATOCRIT 39.4 % (36.0-48.0); HEMOGLOBIN 12.7 g/dL (12-16); IMMATURE GRANULOCYTES 0.3 % (0-5); LYMPHOCYTES 27.4 % (15-50); MCH 29.2 pg (26.0-34.0); MCHC 32.2 g/dL (31.0-37.0); MCV 90.6 fL (80.0-100.0); MONOCYTES 5.3 % (2-11); NEUTROPHILS 64.3 % (40-80); PLATELET COUNT 239 10x3/uL (130-400); RBC 4.35 10x6/uL (4.00-5.40); RDW 15.1 % (11.5-14.5); WBC 11.2 10x3/uL (4.8-10.8)
[2018-03-25 21:27] LABS: APTT 34.3 SECONDS (22.8-39.4); INR 1.2 (0.85-1.17); PROTIME 14.8 SECONDS (11.6-15.0)
[2018-03-25 21:30] LABS: ALBUMIN 3.2 g/dL (3.4-5.0); ALKALINE PHOSPHATASE 198 U/L (46-116); ALT (SGPT) 79 U/L (10-68); BILIRUBIN - TOTAL 0.27 mg/dL (0.2-1.3); CALC OSMOLALITY 288 mosm/kg (275-300); CARBON DIOXIDE 25.6 mmol/L (21.0-32.0); CHLORIDE - SERUM 106 mmol/L (98-107); CREATININE - SERUM 1.3 mg/dL (0.6-1.3); POTASSIUM - SERUM 4.3 mmol/L (3.5-5.1); PROTEIN - SERUM 7.5 g/dL (6.4-8.2); SODIUM 140 mmol/L (136-145); UREA NITROGEN 24 mg/dL (7-18); eGFR NON AFRICAN AMERICAN 42 mL/min (90-120)
[2018-03-25 21:35] LABS: GLUCOSE 211 mg/dL (74-106)
[2018-03-25 21:45] LABS: CKMB 0.9 U/L (0.0-3.6); CREATINE KINASE 34 UL (21-215); PRO BNP 564 pg/mL (0-125); TROPONIN-I < 0.017 ng/mL (0.000-0.060)
[2018-03-25 22:13] VITALS: BP 171/72
== END 2018-03-25 22:16 | disposition home or self-care (01) ==
LOC: D.ER 20:39
PROVIDERS: Emergency Medicine
DX: I47.1 Supraventricular tachycardia (principal); Z86.73 Personal history of transient ischemic attack (TIA), and cerebral infarction without residual deficits

== ENCOUNTER → 2018-12-21 09:23 | Outpatient (CLI) | payer MEDICARE, OTHER ==
[2018-03-25 20:41] VITALS: BMI 22.6
--- NOTE | ~2018-12-21 | EC ---
PATIENT:ISAAC RICARDO DATE OF SERVICE: 12/21/18 SEX: F MEDICAL RECORD: [id number] DATE OF : 41 LOCATION:[facility] AGE OF PATIENT: 73 ADMISSION DATE: 12/21/18 REFERRING PHYSICIAN: INTERPRETING PHYSICIAN: CITLALLI SOMERS MD ECHOCARDIOGRAM REPORT ECHO CHARGES 4 ECHO COMPLETE Date: 12/21/18 CLINICAL DIAGNOSIS: SOLIS/FATIGUE H/O CAD ECHOCARDIOGRAPHIC MEASUREMENTS (adult normal given) AC root (d.<3.7cm) 3.4 cm LV Septum d (<1.2 cm> 1.7 cm Valve Excursion 1.6 cm LV Septum (systole) 2.1 cm Left Atria (s.<4.0cm> 4.6 cm LVPW d(<1.2cm) 1.3 cm RV (d.<2.3cm) 2.1 cm LVPW (sytole) 1.8 cm LV diastole(<5.6CM) 3.9 cm MV E-F(>70mm/sec) cm LV systole 2.0 cm LVOT Diameter 1.8 cm MV exc.(>10mm) cm Est.ejection fraction (50-75%) % DOPPLER: LVIT cm/sec A 101 cm/sec E 81.0 cm/sec LA cm/sec RVSP 55.3 mmHg LVOT 91.0 cm/sec AOP1/2T m/s Asc. Ao 140 cm/sec RVOT 67.0 cm/sec RA cm/sec PA 97.0 cm/sec AV Gradient Peak 7.8 mmHg AV Mean 4.2 mmHg AV Area 1.8 cm MV Gradient Peak 4.8 mmHg MV Mean 2.1 mmHg MV Area cm COMMENTS: OP - HC Chief Order Dispatcher: Donn MARAVILLA [place] Pack Changer: 1 Dr. Somers TAPE# PACS Pericardial Effusion N DATE OF SERVICE: 12/21/2018 PROCEDURE: Echocardiogram. FINDINGS: 1. Left ventricular chamber size is within normal limits. Left ventricular systolic function is normal. Overall ejection fraction estimated at 60%. 2. Left atrium is enlarged at 4.6 cm. Right atrium and right ventricular chamber sizes are as well mildly dilated. 3. Valvular structures have normal structure and motion. ECHOCARDIOGRAM REPORT [id number] ISAAC RICARDO 4. Doppler interrogation reveals moderate mitral regurgitation, severe tricuspid regurgitation, no other valvular insufficiency or stenosis. Pulmonary systolic pressure is elevated estimated at 55 mmHg. 5. No evidence of pericardial effusion or left ventricular thrombus. TRANSINT:[id number] Voice Confirmation ID: [id number] DOCUMENT ID: [id number] CITLALLI SOMERS MD CC: [id number] DICTATION DATE: 12/26/18 1033 ADVERTISING COPYWRITER: 12/26/18 1136 DEP CLI 12/21/18 [address] [place] [id number]
== END | disposition home or self-care (01) ==
LOC: D.HCCARDIO 09:23
PROVIDERS: ATTEND Internal Medicine Cardiovascular Disease
DX: I25.119 Atherosclerotic heart disease of native coronary artery with unspecified angina pectoris (principal)

== ENCOUNTER → 2019-05-05 08:22 | Outpatient (CLI) | payer MEDICARE, BC ==
[2018-03-25 20:41] VITALS: BMI 22.6
--- NOTE | 2019-05-08 14:34 | EC ---
PATIENT:ISAAC RICARDO DATE OF SERVICE: 05/05/19 SEX: F MEDICAL RECORD: [id number] DATE OF : 41 [facility] AGE OF PATIENT: 73 ADMISSION DATE: 05/05/19 REFERRING PHYSICIAN: INTERPRETING PHYSICIAN: CITLALLI SOMERS MD ECHOCARDIOGRAM REPORT ECHO CHARGES 4 ECHO COMPLETE Date: 05/05/19 CLINICAL DIAGNOSIS: CARDIAC ARRHYTHMIA ECHOCARDIOGRAPHIC MEASUREMENTS (adult normal given) AC root (d.<3.7cm) 3.4 cm LV Septum d (<1.2 cm> 1.3 cm Valve Excursion 1.78 cm LV Septum (systole) 1.6 cm Left Atria (s.<4.0cm> 4.3 cm LVPW d(<1.2cm) 1.7 cm RV (d.<2.3cm) 3.4 cm LVPW (sytole) 1.8 cm LV diastole(<5.6CM) 4.3 cm MV E-F(>70mm/sec) cm LV systole 2.9 cm LVOT Diameter 1.9 cm MV exc.(>10mm) cm Est.ejection fraction (50-75%) % DOPPLER: LVIT cm/sec A 98.0 cm/sec E 61.0 cm/sec LA cm/sec RVSP 35 mmHg LVOT 96 cm/sec AOP1/2T m/s Asc. Ao 130 cm/sec RVOT 82 cm/sec RA cm/sec PA 130 cm/sec AV Gradient Peak 6.78 mmHg AV Mean 3.63 mmHg AV Area 2.1 cm MV Gradient Peak 4.04 mmHg MV Mean 1.72 mmHg MV Area cm COMMENTS: Tin Can Feeder: Nael TOTH Teacher Of Family And Consumer Science: 1 Dr. Somers TAPE# PACS Pericardial Effusion N DATE OF SERVICE: PROCEDURE: Echocardiogram. FINDINGS: 1. Left ventricular chamber size is within normal limits. Left ventricular systolic function is normal at 60% to 65%. 2. Left atrium is enlarged at 4.3 cm. Right atrium and right ventricular chamber sizes are as well mildly dilated. 3. Valvular structures have normal structure and motion. ECHOCARDIOGRAM REPORT [id number] ISAAC RICARDO 4. Doppler interrogation reveals mild aortic insufficiency, mild mitral regurgitation, mild tricuspid regurgitation, no other valvular insufficiency or stenosis. Pulmonary systolic pressure is estimated at 35 mmHg. 5. No evidence of pericardial effusion or left ventricular thrombus. TRANSINT:[id number] Voice Confirmation ID: [id number] DOCUMENT ID: [id number] CITLALLI SOMERS MD at 1434 CC: [id number] DICTATION DATE: 05/08/19 1022 ORNAMENTER HAND: 05/08/19 1204 DEP CLI 05/05/19 [place] [id number] [place] [id number]
--- NOTE | 2019-05-08 14:34 | ST ---
PATIENT:ISAAC RICARDO MEDICAL RECORD: [id number] SEX: F LOCATION:[facility] ORDER #: ADMISSION DATE: 05/05/19 AGE OF PATIENT: 73 REFERRING PHYSICIAN: INTERPRETING PHYSICIAN: CITLALLI YATES MD DATE OF SERVICE: 05/05/2019 INDICATIONS: Angina, coronary artery disease, shortness of breath, hypertension, hyperlipidemia. She was exercised on standard Lexiscan protocol with 33 mCi of sestamibi injected at peak stress, 11 mCi used previously for rest images. FINDINGS: Gated SPECT reveals preserved ejection fraction at 66% with good wall motion and thickening and brightening throughout all segments. SPECT imaging: Cardiolite was used as myocardial perfusion agent. There is homogeneous uptake throughout all segments at rest and stress with no evidence of inducible ischemia or previous infarction. OVERALL IMPRESSION: 1. This is a normal nuclear stress test with no evidence of inducible ischemia or previous infarction. 2. Gated SPECT reveals a preserved ejection fraction at 66%. In this patient with ongoing symptomatology, the current scan does not suggest the presence of hemodynamically significant coronary artery disease. Evaluate noncardiac etiology of chest pain. TRANSINT:[id number] Voice Confirmation ID: [id number] DOCUMENT ID: [id number] CITLALLI YATES MD at 1434 CC: MENDEZ DENISE MD [id number] DICTATION DATE: 05/07/19 1234 OXIDE FURNACE TENDER: 05/08/19 0018 DEP CLI 05/05/19 [facility] [address] [place] [address]
== END | disposition home or self-care (01) ==
LOC: D.HCCECHO 08:22
PROVIDERS: ATTEND Internal Medicine Interventional Cardiology
DX: I49.3 Ventricular premature depolarization (principal)

== ENCOUNTER 2019-06-07 09:39 | Outpatient (CLI) | payer MEDICARE, BC ==
[~2019-06-07] VITALS: Ht 165.1 cm; Wt 72.7 kg
--- NOTE | ~2019-06-07 | HEMODYNAMI ---
PATIENT:ISAAC RICARDO MEDICAL RECORD: [id number] : 41 LOCATION:DCARYN ADMISSION DATE: 06/07/19 Generatedon:06/07/201912:25 Patient name: ISAAC RICARDO Patient #: [id number] SSN: [id number] : 1945 Date of study: 06/07/2019 Page: Of Hemodynamic Procedure Report Patient Data Patient Demographics Procedure consent was obtained First Name: ISAAC Gender: Female Last Name: HALEIGH : 1945 Middle Initial: FOREST Age: 73 year(s) Patient #: [id number] Race: SSN: [id number] Additional ID: [id number] Contact details Address: [address] [place] [address] State: [place] City: [place] Zip code: [address] Past Medical History Allergies: No known allergies Admission Admission Data Admission Date: 06/07/2019 Admission Time: 9:39 Procedure Procedure Types Cath Procedure Diagnostic Procedure Cardioversion External Procedure Description Procedure Date Procedure Date: 06/07/2019 Procedure Start Time: 12:11 Procedure End Time: 12:22 Procedure Staff Name Function Juvencio Rosen RT Monitor Sky Freed CRNA Additional personnel Sampson Somers MD Performing Physician Jen Vaughn RN Nurse Procedure Data Cath Procedure Fluoroscopy Diagnostic fluoroscopy Total fluoroscopy Time: 0 time: 0 min min Diagnostic fluoroscopy Total fluoroscopy dose: 0 dose: 0 mGy mGy Estimated blood loss: 0 ml Procedure Complications No complications Procedure Medications Medication Administration Route Dosage 0.9% NaCl I.V. 100 ml/hr Oxygen etCO2 Nasal cannula 2 l/min Refer to Anesthesia Notes for Sedation Medications Hemodynamics Rest Pre Cath Intra NCS Post Cath Vital Signs Time Heart Resp SPO2 etCO2 NIBP (mmHg) Rhythm Pain Sedation Rate (ipm) (%) (mmHg) Status Level (bpm) 11:52:16 112 18 98 25 163/105(122) A-Flutter 0 (11) 10(A) , No pain 11:56:34 93 12 100 28.4 156/112(135) A-Flutter 0 (11) 10(A) , No pain 12:00:48 112 17 100 27.7 154/113(130) A-Flutter 0 (11) 10(A) , No pain 12:05:02 112 20 100 27.6 150/106(129) A-Flutter 0 (11) 10(A) , No pain 12:09:08 107 14 99 27.6 106/68(93) A-Flutter 0 (11) 5(A) , No pain 12:12:02 62 21 98 26.1 115/60(93) NSR 0 (11) 5(A) , No pain 12:16:16 59 26 98 24.6 107/59(85) SB 0 (11) 10(A) , No pain 12:20:28 97 29.2 109/56(91) SB 0 (11) 10(A) , No pain Medications Time Medication Route Dose Verified Delivered Reason Notes Effective ness by by 11:52:05 0.9% NaCl I.V. 100 Sampson Li used for ml/hr Lizbet Vaughn animal husbandry worker 11:52:12 Oxygen etCO2 2 Sampson Li used for Nasal l/min Lizbet Vaughn procedure cannula RN 11:52:18 Refer to Sampson Braden for Anesthesia Lizbet Somers MD sedation Notes for Sedation Medications Procedure Log Time Note 11:38:09 Jen Vaughn RN sent for patient. Start room use. 11:38:10 Time tracking: Regular hours (M-F 7:00 - 5:00) 11:38:15 Plan of Care:Hemodynamics will remain stable., Cardiac rhythm will remain stable., Comfort level will be maintained., Respiratory function will remain adequate., Patient/ family verbilizes understanding of procedure., Procedure tolerated without complication., Recovers from procedure without complications.. 11:42:29 Quick Combo opened to sterile field. 11:47:28 Patient arrived from Pre/Post Procedure Room to CCL 3. Patient remains on bed/stretcher for procedure. 11:47:30 Signed procedure consent form obtained from patient. 11:47:32 Correct patient and procedure confirmed by team. 11:47:32 Warm blankets applied, and thiago hugger turned on for patient comfort. 11:47:33 ECG and BP/O2 sat monitors applied to patient. 11:51:10 Vital chart was started 11:51:19 Rhythm: atrial fibrillation 11:51:20 Full Disclosure recording started 11:51:29 H&P Date Dictated: 05/18/2019 Within 30 days and on chart., H&P Addendum completed by physician on day of procedure. (MUST COMPLETE FOR ALL OUTPATIENTS). 11:51:30 Pre-procedure instructions explained to patient. 11:51:31 Pre-op teaching completed and patient verbalized understanding. 11:51:47 Family in waiting room. 11:51:49 Patient NPO since Midnight. 11:51:50 Is the patient allergic to Iodine/contrast media? No. 11:51:57 Is patient on blood thinner?Yes 11:52:02 ACC The patient was administered the following blood thiners within the last 24 hours: Eliquis 11:52:04 Patient diabetic? No. 11:52:05 0.9% NaCl 100 ml/hr I.V. was administered by Jen Vaughn RN; used for procedure; Verbal order read back and verified. 11:52:12 Oxygen 2 l/min etCO2 Nasal cannula was administered by Jen Vaughn RN; used for procedure; Verbal order read back and verified. 11:52:17 Previous problem with sedation/anesthesia? No ? 11:52:18 Refer to Anesthesia Notes for Sedation Medications was administered by Sampson Somers MD; for sedation; Verbal order read back and verified. 11:52:19 Snore? No 11:52:20 Sleep apnea? No 11:52:21 Deviated septum? No 11:52:22 Opens mouth fully? Yes 11:52:23 Sticks out tongue? Yes 11:52:25 Airway obstruction? No ? 11:52:26 Dentures? No ? 11:52:30 Patient pain scale 0/10 ?. 11:52:34 IV patent on arrival in right forearm with 0.9% NaCl at [facility]. 11:52:36 Lab results completed and on chart. 11:52:40 Alarms reviewed by Mulu Hall 11:52:45 Quick combo pads placed on patients chest and back. 12:00:28 Sky Freed CRNA present and monitoring patient for TIVA. 12:05:00 --------ALL STOP TIME OUT------ 12:05:01 Physical assessment completed. ASA score P 3 - A patient with severe systemic disease as per Sampson Somers MD. 12:05:11 Fire Safety Assessment: E--There are other possible contributors. 12:05:48 Final Timeout: patient, procedure, and site verified with staff and physician. All members of the team are in agreement. 12:08:20 Procedure started. 12:08:23 Defibrillator synced and charged to 275 Joules. 12:08:32 Shock delivered. 12:08:35 Patient cardioverted to sinus rhythm . 12:10:40 Procedure ended.(Physican Out) 12:18:01 Fluoroscopy time 00.00 minutes. 12:18:02 Fluoroscopy dose: 0 mGy 12:18:02 Flurop Dose total: 0 12:18:04 Dose Area Product 0 mGy/cm. 12:18:24 Post-procedure physical assessment completed. ASA score P 3 - A patient with severe systemic disease as per Sampson Somers MD. 12:18:27 Post procedure rhythm: sinus rhythm 12:18:28 Estimated blood loss: 0 ml 12:18:29 Post procedure instruction explained to patient.Patient verbalizes understanding. 12:18:30 Patient needs reinforcement of post procedure teaching. 12:18:31 Procedure and supply charges have been captured, reviewed, submitted and are correct. 12:18:34 Procedure Complication : No complications 12:21:49 Vital chart was stopped 12:21:50 Operative report dictated upon procedure completion. 12:21:51 See physician's report for complete and final results. 12:22:00 Report given to Pre/Post Procedure Room. 12:22:03 Patient transfered to Pre/Post Procedure Room with Stretcher. 12:22:07 Full Disclosure recording stopped 12:22:07 Procedure ended. 12:22:10 End room use (Document Last) Device Usage Item Manufacture Quantity Catalog Hospital Part Current Minimal Lot# / Name Number Charge Number Stock Stock Norberto al# Code [employer] 1 [id number] Combo Signature Audit [place] Stage Time Signature Unsigned Intra-Procedure 06/07/2019 Juvencio Rosen 12:24:28 PM RT(R) Intra-Procedure 06/07/2019 Jen Vaughn 12:24:58 PM RN Intra-Procedure 06/07/2019 Sampson Somers 12:25:28 PM [id number] [place] [address]
[2019-06-07] MEDS ORDERED: AMIODARONE HCL200 MG PO (10:29)
[2019-06-07] MEDS ORDERED: TOPROL XL25 MG PO (10:30)
[2019-06-07] MEDS ORDERED: OMEPRAZOLE40 MG PO (10:32)
[2019-06-07] MEDS ORDERED: XANAX0.25 MG PO (10:33)
[2019-06-07] MEDS ORDERED: BUPROPION XL300 MG PO (10:34)
[2019-06-07 10:43] VITALS: BP 142/89; Ht 165.1 cm; Wt 72.7 kg
[2019-06-07 10:50] LABS: BASOPHILS 0.4 % (0-2); EOSINOPHILS 2.8 % (0-7); HEMATOCRIT 38.9 % (36.0-48.0); IMMATURE GRANULOCYTES 0.4 % (0-5); LYMPHOCYTES 22.8 % (15-50); MCH 27.7 pg (26.0-34.0); MCHC 30.8 g/dL (31.0-37.0); MCV 89.8 fL (80.0-100.0); MEAN PLATELET VOLUME 10.3 fL (7.4-10.4); NEUTROPHILS 65.6 % (40-80); PLATELET COUNT 280 10x3/uL (130-400); RBC 4.33 10x6/uL (4.00-5.40); RDW 15.6 % (11.5-14.5); WBC 8.3 10x3/uL (4.8-10.8)
[2019-06-07 11:06] LABS: ANION GAP 10.2 mmol/L (8-16); CARBON DIOXIDE 29.3 mmol/L (21.0-32.0); CREATININE - SERUM 1.3 mg/dL (0.6-1.3); POTASSIUM - SERUM 4.5 mmol/L (3.5-5.1)
[2019-06-07 11:13] LABS: INR 1.34 (0.85-1.17)
--- NOTE | 2019-06-07 12:30 | NUR ---
PT RECEIVED VIA STRETCHER FROM DOOR PULLER FOR RECOVERY POST SUCESSFUL CARDIOVERSION. PT AWAKE BUT DROWSY. DENIES PAIN OR DISCOMFORT. IV PATENT INFUSING VIA ORDERS TO L ARM. PT PLACED ON CARDIAC MONITORS AND O2 AT 1L/NC. HR NSR RATE 62, BP 102/59, RR 21, SAT 96. CALL LIGHT IN REACH, AT BEDSIDE.
--- NOTE | 2019-06-07 13:00 | NUR ---
PT RESTING COMFORTABLY, DENIES PAIN OR DISCOMFORT. OJ GIVEN. HR NSR, RATE 61, BP 123/66. CALL LIGHT IN REACH, REMAINS AT BEDSIDE.
--- NOTE | 2019-06-07 13:24 | NUR ---
SANDWICH SERVED. PT DENIES PAIN OR OTHER NEEDS. CALL LIGHT IN REACH
--- NOTE | 2019-06-07 13:30 | NUR ---
DISCHARGE INSTRUCTIONS REVIEWED W PT AND SHE VERALIZED UNDERSTANDING. IV REMOVED W CATH INTACT, CARDIAC MONITORS REMOVED AND PT UP TO DRESS FOR DISCHARGE.
--- NOTE | 2019-06-07 13:50 | NUR ---
PT DISCHARGED VIA WC TO WAITING IN PRIVATE VEHICLE. PT HAD ALL BELONGINGS AND DISCHARGE PAPERWORK
--- NOTE | 2019-06-14 14:07 | OP ---
PATIENT NAME: ISAAC RICARDO MEDICAL RECORD: [id number] :41 LOCATION:D.CAT ADMISSION DATE: SURGEON: CITLALLI YATES MD DATE OF OPERATION: 06/07/2019 PROCEDURE: DC cardioversion. INDICATION: Atrial fibrillation. PROCEDURE IN DETAIL: IV conscious sedation was per anesthesia. Continuous heart rate, O2 saturation, blood pressure monitoring all undertaken, all of which remained stable. She received 1 shock at 275 joules restoring sinus rhythm. OVERALL IMPRESSION: Successful DC cardioversion from atrial fibrillation to sinus rhythm. TRANSINT:[id number] Voice Confirmation ID: [id number] DOCUMENT ID: [id number] CITLALLI YATES MD at 1407 CC: [id number] DICTATION DATE: 06/07/19 1253 MORTAR MIXER: 06/07/19 1300 DEP CLI 06/07/19 [id number] [place] [address]
== END 2019-06-07 13:50 | disposition home or self-care (01) ==
LOC: D.CATH 09:39
PROVIDERS: ATTEND Internal Medicine Interventional Cardiology
DX: I48.91 Unspecified atrial fibrillation (principal)

== ENCOUNTER 2019-06-10 11:03 | Inpatient (IN) | payer MEDICARE, BC ==
[~2019-06-10] VITALS: Ht 165.1 cm; Wt 83.1 kg
--- NOTE | ~2019-06-10 | HEMODYNAMI ---
PATIENT:ISAAC RICARDO MEDICAL RECORD: [id number] : 41 LOCATION:D.ICU D.2307 ADMISSION DATE: 06/10/19 Generatedon:06/15/201910:40 Patient name: ISAAC RICARDO Patient #: [id number] SSN: [id number] : 1945 Date of study: Page: Of Hemodynamic Procedure Report Patient Data Patient Demographics First Name: ISAAC Gender: Female Last Name: HALEIGH : 1945 Middle Initial: FOREST Age: 73 year(s) Patient #: [id number] Race: SSN: [id number] Additional ID: [id number] Contact details Address: [address] [place] [address] State: [place] City: [place] Zip code: [address] Past Medical History Allergies: No known allergies Admission Admission Data Admission Date: 06/10/2019 Admission Time: 12:42 Room #: D2307 Procedure Procedure Types Cath Procedure Diagnostic Procedure Cardioversion External Procedure Description Procedure Staff Name Function Sampson Somers MD Performing Physician Hemodynamics Rest Pre Cath Intra NCS Post Cath Procedure Log Time Note 10:39:19 PROCEDURE PERFORMED IN ICU BY DR SOMERS. Signature Audit [place] Stage Time Signature Unsigned Intra-Procedure 06/15/2019 Sampson Somers 10:40:18 AM [facility] [address] [place] [address]
[~2019-06-10 11:03] MED LIST changes: +AMIODARONE HCL200 MG PO; +OMEPRAZOLE40 MG PO; +TOPROL XL25 MG PO
[2019-06-10 12:00] LABS: BASOPHILS 0.2 % (0-2); EOSINOPHILS 1.4 % (0-7); HEMOGLOBIN 10.7 g/dL (12-16); IMMATURE GRANULOCYTES 0.3 % (0-5); LYMPHOCYTES 13.7 % (15-50); MCH 27.6 pg (26.0-34.0); MCHC 30.6 g/dL (31.0-37.0); MCV 90.4 fL (80.0-100.0); MEAN PLATELET VOLUME 10.4 fL (7.4-10.4); NEUTROPHILS 78.4 % (40-80); PLATELET COUNT 250 10x3/uL (130-400); RBC 3.87 10x6/uL (4.00-5.40); RDW 15.8 % (11.5-14.5); WBC 10.3 10x3/uL (4.8-10.8)
[2019-06-10 12:10] LABS: CALC OSMOLALITY 284 mosm/kg (275-300); CALCIUM 8.7 mg/dL (8.5-10.1); CARBON DIOXIDE 26.2 mmol/L (21.0-32.0); CHLORIDE - SERUM 106 mmol/L (98-107); CREATININE - SERUM 1.1 mg/dL (0.6-1.3); GLUCOSE 154 mg/dL (74-106); POTASSIUM - SERUM 4.4 mmol/L (3.5-5.1); SODIUM 139 mmol/L (136-145); UREA NITROGEN 23 mg/dL (7-18); eGFR NON AFRICAN AMERICAN 51 mL/min (90-120)
[2019-06-10 12:13] LABS: APTT 39.6 SECONDS (22.8-39.4); INR 1.69 (0.85-1.17); PROTIME 19.2 SECONDS (11.6-15.0)
[2019-06-10 12:14] LABS: D-DIMER-QUANTITATIVE 0.29 ug/mLFEU (0.20-0.54)
[2019-06-10 12:26] LABS: ALBUMIN 2.8 g/dL (3.4-5.0); ALKALINE PHOSPHATASE 157 U/L (46-116); ALT (SGPT) 25 U/L (10-68); BILIRUBIN - TOTAL 0.58 mg/dL (0.2-1.3); CKMB 0.2 U/L (0.0-3.6); CREATINE KINASE 29 UL (21-215); PRO BNP 885 pg/mL (0-450); PROTEIN - SERUM 7.3 g/dL (6.4-8.2)
[2019-06-10 12:28] LABS: TROPONIN-I < 0.017 ng/mL (0.000-0.060)
--- NOTE | 2019-06-10 12:34 | NUR ---
LEVAQUIN INFUSING PT ALTA. WELL.
[2019-06-10 13:45] LABS: APPEARANCE CLEAR (CLEAR); BILIRUBIN NEGATIVE (NEGATIVE); COLOR YELLOW (YELLOW); GLUCOSE NEGATIVE (NEGATIVE); KETONE NEGATIVE (NEGATIVE); NITRITE POSITIVE (NEGATIVE); PROTEIN NEGATIVE (NEGATIVE); UROBILINOGEN NORMAL (NORMAL)
[2019-06-10 13:46] LABS: BACTERIA MANY /hpf (NEGATIVE); EPITHELIAL CELLS 0-5 /hpf (0-5); RED CELLS - URINE 0-5 /hpf (0-5)
--- NOTE | 2019-06-10 14:43 | NUR ---
DR. FLORENCE HERE TO SEE PT.
[2019-06-10 16:16] VITALS: BP 124/60; BMI 26.6
[2019-06-10 16:38] LABS: % SATURATION 11 % (15-55); IRON 37 ug/dl (35-150); TOTAL IRON BIND CAPACITY 323 ug/dl (260-445); UNSAT IRON BIND CAPACITY 286 ug/dl (150-375)
[2019-06-10 20:00] VITALS: BP 166/91
--- NOTE | 2019-06-10 21:14 | NUR ---
MOVED PT TO ROOM 2103. PT ALERT AND ORIENTED X4. SOB TO THE BATHEROOM. PT AT BEDSIDE. BED LOW CALL IGHT WITHIN REACH WILL CONTINUE TO MONITOR.
[2019-06-10 23:44] VITALS: BP 180/107
[2019-06-11 04:05] VITALS: BP 119/82
[2019-06-11 04:33] LABS: BASOPHILS 0.2 % (0-2); EOSINOPHILS 0.2 % (0-7); HEMATOCRIT 34.8 % (36.0-48.0); HEMOGLOBIN 10.7 g/dL (12-16); IMMATURE GRANULOCYTES 0.2 % (0-5); LYMPHOCYTES 17.2 % (15-50); MCH 27.5 pg (26.0-34.0); MCHC 30.7 g/dL (31.0-37.0); MCV 89.5 fL (80.0-100.0); MEAN PLATELET VOLUME 10.4 fL (7.4-10.4); NEUTROPHILS 75.2 % (40-80); PLATELET COUNT 248 10x3/uL (130-400); RBC 3.89 10x6/uL (4.00-5.40); RDW 15.9 % (11.5-14.5)
[2019-06-11 04:35] LABS: WBC 12.9 10x3/uL (4.8-10.8)
[2019-06-11 04:54] LABS: ALBUMIN 2.6 g/dL (3.4-5.0); ANION GAP 12.9 mmol/L (8-16); BILIRUBIN - TOTAL 0.6 mg/dL (0.2-1.3); CALCIUM 8.7 mg/dL (8.5-10.1); CARBON DIOXIDE 25.2 mmol/L (21.0-32.0); CREATININE - SERUM 1.1 mg/dL (0.6-1.3); MAGNESIUM - SERUM 1.7 mg/dL (1.8-2.4); POTASSIUM - SERUM 4.1 mmol/L (3.5-5.1); PROTEIN - SERUM 7.2 g/dL (6.4-8.2)
--- NOTE | 2019-06-11 05:55 | NUR ---
I have reviewed this patient and I concur with the Shift Assessment completed by the Licensed Practical Nurse today this shift.
--- NOTE | 2019-06-11 07:30 | NUR ---
A/A/OX4. DENIES ANY PAIN OR DISCOMFORT. IV NOTED TO BE RED AND INFILTRATED. REMOVED IV CATH WITH TIP INTACT. RESTARTED IN LEFT FOREARM WITH 22 GAUGE X 1 ATTEMPT. PT TOLERATED WELL. NO REQUESTS VOICED. ASSESSMENT COMPLETED AND WILL CONTINUE POC. AT BEDSIDE.
[2019-06-11 08:08] VITALS: BP 153/96
[2019-06-11 11:44] VITALS: BP 151/92
--- NOTE | 2019-06-11 14:13 | NUR ---
I AGREE WITH THE CURRENT ASSESSMENT OF THE ELECTRICAL ELECTRONICS ENGINEER ON STAFF
[2019-06-11 16:27] VITALS: BP 125/85
--- NOTE | 2019-06-11 19:05 | NUR ---
AWAKWE AND ALERT BED LOW AND LOCKED CALL LIGHT IN REACHATTENDED TO NEEDS AT THIS TIME TX IN PROGRESS
[2019-06-11 20:20] VITALS: BP 140/87
[2019-06-12 00:37] VITALS: BP 125/68
--- NOTE | 2019-06-12 02:57 | NUR ---
I have reviewed this patient and I concur with the Shift Assessment completed by the Licensed Practical Nurse today this shift.
[2019-06-12 04:30] VITALS: BP 155/83
[2019-06-12 05:33] LABS: BASOPHILS 0.1 % (0-2); EOSINOPHILS 0.4 % (0-7); HEMATOCRIT 33.5 % (36.0-48.0); HEMOGLOBIN 10.4 g/dL (12-16); IMMATURE GRANULOCYTES 0.5 % (0-5); MCH 27.7 pg (26.0-34.0); MCV 89.3 fL (80.0-100.0); MEAN PLATELET VOLUME 10.6 fL (7.4-10.4); MONOCYTES 7.7 % (2-11); NEUTROPHILS 79.3 % (40-80); PLATELET COUNT 249 10x3/uL (130-400); RBC 3.75 10x6/uL (4.00-5.40); WBC 13.5 10x3/uL (4.8-10.8)
[2019-06-12 05:55] LABS: ANION GAP 12.2 mmol/L (8-16); CALCIUM 8.6 mg/dL (8.5-10.1); CARBON DIOXIDE 24.5 mmol/L (21.0-32.0); MAGNESIUM - SERUM 1.8 mg/dL (1.8-2.4); POTASSIUM - SERUM 3.7 mmol/L (3.5-5.1)
--- NOTE | 2019-06-12 07:30 | NUR ---
LIGHT RAIL OPERATOR DOING ROUNDS THIS AM AND GETTING VS. PT'S O2 SAT WAS 83% ON 2L VIA NC. CALLED R.T. AND SHE PLACED PT ON HIGH FLOW NC ON 3L. PT SAT NOW 90%.
[2019-06-12 07:57] VITALS: BP 120/68
[2019-06-12 09:29] VITALS: BMI 26.6
[2019-06-12 11:37] VITALS: BP 110/65
--- NOTE | 2019-06-12 12:00 | NUR ---
PT NOW ON 5L HIGH FLOW NC AND O2 SAT IS 95%. WILL CONTINUE TO MONITOR. PT HAS NO FURTHER NEEDS AT THIS TIME. BED LOW. CL IN REACH.
--- NOTE | 2019-06-12 14:02 | NUR ---
I have reviewed this patient and I concur with the Shift Assessment completed by the Licensed Practical Nurse today this shift.
[2019-06-12 15:31] VITALS: BP 117/66
--- NOTE | 2019-06-12 19:12 | NUR ---
PT BACK FROM REST ROOM AND IS EXPERIENCING SOB LUNGS ARE DEMINISHED SKIN WARM AND DRY DENIES OTHER NEEDS BED IS LOW AND LOCKED AND SR X1 AND CALL LIGHT IS IN REACH
[2019-06-12 20:48] VITALS: BP 171/92
--- NOTE | 2019-06-12 22:48 | NUR ---
FOUND IV TO BE INFILTRATED REMOVED CATH INTACT AND PT IS WANTING TO WAIT ON RESTART
[2019-06-13] VITALS (17 sets, daily range): BP systolic 123–177; BP diastolic 63–105; Ht 165.1 cm; Wt 83.1 kg
--- NOTE | 2019-06-13 01:10 | NUR ---
I have reviewed this patient and I concur with the Shift Assessment completed by the Licensed Practical Nurse today this shift.
--- NOTE | 2019-06-13 02:50 | NUR ---
PT CO SOB DIAPHORETIC AND BREATHING RAPID SPO2 66% RAPID RESPONSE CALLED AND TWO IVs STARTED
[2019-06-13 03:18] LABS: BASOPHILS 0.1 % (0-2); EOSINOPHILS 0 % (0-7); HEMATOCRIT 31.5 % (36.0-48.0); HEMOGLOBIN 9.8 g/dL (12-16); IMMATURE GRANULOCYTES 0.3 % (0-5); LYMPHOCYTES 7.4 % (15-50); MCH 27.6 pg (26.0-34.0); MCHC 31.1 g/dL (31.0-37.0); MCV 88.7 fL (80.0-100.0); MEAN PLATELET VOLUME 10.4 fL (7.4-10.4); MONOCYTES 7.1 % (2-11); NEUTROPHILS 85.1 % (40-80); PLATELET COUNT 270 10x3/uL (130-400); RBC 3.55 10x6/uL (4.00-5.40); RDW 15.9 % (11.5-14.5); WBC 14.7 10x3/uL (4.8-10.8)
--- NOTE | 2019-06-13 03:24 | NUR ---
ORDERS RECEIVED LOPRESSOR PUSHED XRAY DONE AND BLOOD DRAWN RESP SETTING UP PT IS NO LONGER IN DISTRESS WITH O2 SAT 94 AND DENIES SOB OR CP SKIN NOW DRY LCTA
[2019-06-13 03:39] LABS: ANION GAP 11.8 mmol/L (8-16); CALCIUM 8.5 mg/dL (8.5-10.1); CARBON DIOXIDE 23.8 mmol/L (21.0-32.0); MAGNESIUM - SERUM 1.7 mg/dL (1.8-2.4); PHOSPHOROUS 2.2 mg/dL (2.5-4.9); POTASSIUM - SERUM 3.6 mmol/L (3.5-5.1)
--- NOTE | 2019-06-13 08:24 | NUR ---
REPORT RECEIVED. WILL CONTINUE WITH POC. PT CURRENTLY LYING HIGH FOWLERS. CALL LIGHT W/I REACH. RR EVEN AND UNLABORED ON 40L VAPOTHERM. NS INFUSING @50ML/HR VIA L.FOR PIV. R.FOR PIV IS SALINE LOCKED. PT DENIES ANY NEEDS AT THIS TIME. NO S/S OF DISTRESS NOTED. WILL CTM.
[2019-06-13 13:09] LABS: T4 THYROXIN - FREE 1.77 ng/dL (0.76-1.46); THYROID STIMULATING HORMONE 1.9 uIU/mL (0.36-3.74)
--- NOTE | 2019-06-13 19:00 | NUR ---
ASSESSMENT COMPLETED. PATIENT LAYING IN BED. ON VAPOTHERM, 40LPM, 80%, 33 C. PULSE OX 91%. FLUTTER NOW IN ROOM AND EDUCATED ON USE. IS IN ROOM, DESAT TO 85-89%. RT PRESENT. HELD OFF ON IS AT THIS TIME. 2 PIV, 1 RIGHT AC & 1 RIGHT HAND. RIGHT HAND BLOODY, CHANGED DRESSING. NO SWELLING, REDNESS, OR PAIN. PHOSPHORUS 2.2, PER PROTOCOL HUNG IV SODIUM PHOSPHATE. DENIES ANY NEEDS AT THIS TIME. AT BEDSIDE. CALL LIGHT IN REACH.
--- NOTE | 2019-06-13 19:05 | NUR ---
DR QUINTEROS HERE FOR EVAL, NEW ORDER GIVEN FOR, HYDRALAZINE 25 MG PO TID, AND TOT INCREASE CARDIZEM GTT TO 15MG/HR
--- NOTE | 2019-06-13 21:00 | NUR ---
LAYING IN BED. OXYGEN RUNNING 85-95%. INFOMRED RT AND PLANS TO PUT PT ON BIPAP. EDUCATED AND PATIENT ABOUT THIS AND VERBALIZED UNDERSTANDING. CALL LIGHT IN REACH. DENIES ANY NEEDS OR PAIN AT THIS TIME
--- NOTE | 2019-06-13 21:38 | NUR ---
APPLIED BILEVEL 14/7 80% IN ATTEMPT TO TITRATE 02 ABOVE 92% TOLERATED APPLICATION WELL BILATERAL C/D BS RR 24 UNLABORED CURRENT SP02 95% ZERO CYANOSIS EQUALATERAL EXCURSION NO IMMEDIATE S/S RESP DISTRESS NOTED AT THIS TIME
--- NOTE | 2019-06-13 23:00 | NUR ---
LAYING BACK IN BED, CALL LIGHT IN REACH. EYES CLOSED. RE-ASSESSMENT COMPLETE. PATIENT WAS PLACED ON BIPAP PER RT WITH 80% O2, /. OXYGEN RUNNING 93-100%. NO OTHER CHANGES FROM LAST ASSESSMENT
[2019-06-14] VITALS (24 sets, daily range): BP systolic 98–156; BP diastolic 41–108
--- NOTE | 2019-06-14 01:00 | NUR ---
LAYING IN BED. EASILY WAKES. CONT ON BIPAP. CALL LIGHT IN REACH. DENIES ANY NEEDS. COLLECTED URINE VIA CLEAN CATCH AND SENT TO LAB AT 0026.
--- NOTE | 2019-06-14 03:00 | NUR ---
LAYING IN BED, DENIES COMPLAINTS. BIPAP AT 80% STILL ON. CALL LIGHT IN REACH, BED IN LOWEST POSITION.
--- NOTE | 2019-06-14 04:29 | NUR ---
AT APPROX 4 AM. PATIENT WAS COUGHING UP GREEN SPUTUM WHILE ON BIPAP. TOOK BIPAP OFF TO GIVE BREAK, PLACED BACK ON VAPOTHERM. PULSE OX 76%-80% AND WOULDN'T COME UP. PLACED BACK ON BIPAP AT 80% AND PULSE OX CAME UP TO 97%. RT AWARE. PATIENT LAYING BACK IN BED, CALL LIGHT IN REACH, DENIES PAIN.
--- NOTE | 2019-06-14 05:00 | NUR ---
LAYING IN BED. CALL LIGHT IN PLACE. AT BEDSIDE. DENIES PAIN OR NEEDS. BIPAP ON AT 80%. PULSE OX STAYING AROUND 96-98%. PT CONT TO HAVE PRODUCTIVE COUGHING.
[2019-06-14 05:01] LABS: BASOPHILS 0.1 % (0-2); EOSINOPHILS 0 % (0-7); HEMATOCRIT 31.1 % (36.0-48.0); HEMOGLOBIN 9.6 g/dL (12-16); IMMATURE GRANULOCYTES 0.2 % (0-5); LYMPHOCYTES 5.1 % (15-50); MCH 27.4 pg (26.0-34.0); MCHC 30.9 g/dL (31.0-37.0); MCV 88.9 fL (80.0-100.0); MEAN PLATELET VOLUME 10.4 fL (7.4-10.4); MONOCYTES 3.5 % (2-11); NEUTROPHILS 91.1 % (40-80); PLATELET COUNT 287 10x3/uL (130-400); RDW 16.1 % (11.5-14.5); WBC 16.1 10x3/uL (4.8-10.8)
[2019-06-14 05:05] LABS: CALCIUM 8.3 mg/dL (8.5-10.1); CARBON DIOXIDE 24.7 mmol/L (21.0-32.0); PHOSPHOROUS 2.6 mg/dL (2.5-4.9); POTASSIUM - SERUM 3.7 mmol/L (3.5-5.1)
[2019-06-14 05:06] LABS: MAGNESIUM - SERUM 2.4 mg/dL (1.8-2.4)
[2019-06-14 05:26] LABS: C-REACTIVE PROTEIN 39.7 mg/dL (0.0-0.9)
--- NOTE | 2019-06-14 05:40 | NUR ---
SPUTUM CULTURE SENT TO LAB. SMALL AMOUNT OF WHITE, PINK SPUTUM.
[2019-06-14 06:03] LABS: ERYTHROCYTE SEDIMENTATION RATE 97 mm/hr (0-30)
--- NOTE | 2019-06-14 07:00 | NUR ---
BEDSIDE REPORT RECEIVED. ASSESSMENT COMPLETED PER FLOWSHEET, SEE FLOWSHEET FOR INFORMATION. PT FAMILY AT BEDSIDE, NO NEEDS OR DISTRESS NOTED AT THIS TIME. VSS. WILL CONT TO MONITOR.
--- NOTE | 2019-06-14 08:45 | NUR ---
PUT PT ON BIPAP FROM MI, O2 SAT 77%. WILL CONT TO MONITOR.
--- NOTE | 2019-06-14 09:00 | NUR ---
ANSWERED PT CALL LIGHT, PT REQUEST TO BE PUT ON BEDPAN. 200 ML OF OUTPUT NOTICED. WILL CONT TO MONITOR.
--- NOTE | 2019-06-14 09:26 | NUR ---
Nutrition follow-up: Pt NPO for cardioversion today Labs reviewed PO intake of low sodium diet has been ~50% of meals Wt: 166# BIPAP in use RDN following.
--- NOTE | 2019-06-14 09:35 | NUR ---
AND AT BEDSIDE. PROCEDURE HAS BEGUN. WILL CONT TO MONITOR.
--- NOTE | 2019-06-14 11:00 | NUR ---
REASSESSMENT COMPLETED PER FLOWSHEET, SEE FLOWSHEET FOR INFORMATION. WILL CONT TO MONITOR. NO NEEDS OR DISTRESS NOTED AT THIS TIME.
--- NOTE | 2019-06-14 13:00 | NUR ---
PT RESTING IN BED WITH EYES CLOSED. VSS. NO NEEDS OR DISTRESS NOTED AT THIS TIME. WILL CONT TO MONITOR.
--- NOTE | 2019-06-14 14:08 | CN ---
PATIENT NAME:ISAAC RICARDO MEDICAL RECORD: [id number] : 41 LOCATION:WESD.2307 ADMIT DATE: 06/10/19 ACCOUNT: [id number] CONSULTING PHYSICIAN: CITLALLI YATES MD REFERRING PHYSICIAN: KHAI FLORENCE MD DATE OF CONSULTATION: 06/13/2019 CARDIOLOGY CONSULTATION DIAGNOSES: 1. Atrial fibrillation. 2. Tachycardia. 3. Palpitations. 4. Shortness of breath. 5. Pneumonia. 6. Coronary artery disease. 7. Previous percutaneous transluminal coronary angioplasty stent. 8. Hyperlipidemia. 9. Eliquis anticoagulation. HISTORY OF PRESENT ILLNESS: Mrs. Ricardo presents with shortness of breath, found to have pneumonia. She recently underwent cardioversion. She has reverted back to atrial fibrillation. She did not tolerate the sotalol in the past. She is currently on amiodarone, metoprolol. Heart rates in the 130s. PHYSICAL EXAMINATION: CONSTITUTIONAL/GENERAL APPEARANCE: Well nourished, well developed, appears stated age. EYES: Lids and conjunctivae noninjected. No discharge. No pallor. ENT: Lips within normal limit. No cyanosis. No pallor. NECK: Carotid arteries, bilateral normal upstroke. No bruits. No thrills. No jugular venous pressure or distention. CERVICAL LYMPH NODES: Nontender. Nonenlarged. THYROID: Not enlarged. No nodules. CARDIOVASCULAR: Precordial exam, nondisplaced. No heaves or pericardial thrills. Rate and rhythm, regular. Heart sounds, normal S1, normal S2. No S3, no gallop, no rub. Systolic murmur, not heard. Diastolic murmur, not heard. RESPIRATORY: Respiratory effort, unlabored. Normal curvature. No thoracic deformity. No chest wall tenderness. Percussion, resonant. Auscultation, clear. No wheezes, no rales, no rhonchi. ABDOMEN: Soft, nondistended, nontender. No abdominal pain, no vomiting and normal appetite. MUSCULOSKELETAL: No joint tenderness, normal gait, normal tone. SKIN: Warm and dry. OVERALL IMPRESSION: Atrial fibrillation with rapid ventricular response. At this time, we will increase her metoprolol, add digoxin. Continue the amiodarone. Plan for DC cardioversion tomorrow. TRANSINT:[id number] Voice Confirmation ID: [id number] DOCUMENT ID: [id number] CONSULT REPORT [id number] ISAAC RICARDO, CITLALLI LUNA at 1408 CC: [id number] DICTATION DATE: 06/13/19 1035 CULTURED MARBLE PRODUCTS MAKER: 06/13/19 1151 ADM IN [address] [place] [address]
--- NOTE | 2019-06-14 14:08 | OP ---
PATIENT NAME: ISAAC RICARDO MEDICAL RECORD: [id number] :41 LOCATION:[facility] D.2307 ADMISSION DATE:06/10/19 SURGEON: CITLALLI YATES MD DATE OF OPERATION: 06/14/2019 PROCEDURE: DC cardioversion. INDICATION: Atrial fibrillation, respiratory failure. DESCRIPTION OF PROCEDURE: IV conscious sedation was per anesthesia. Continuous heart rate, O2 saturation, blood pressure monitoring all undertaken, all of which remained stable. She received 3 shocks at 275, 325, and 360 joules failing to convert her. OVERALL IMPRESSION: Unsuccessful DC cardioversion from atrial fibrillation. TRANSINT:[id number] Voice Confirmation ID: [id number] DOCUMENT ID: [id number] CITLALLI YATES MD at 1408 CC: [id number] DICTATION DATE: 06/14/19 0941 REFRIGERATOR CRATER: 06/14/19 1041 ADM [address] [place] [id number] [place] [id number]
--- NOTE | 2019-06-14 15:00 | NUR ---
PT FAMILY AT BEDSIDE. PT GIVEN SIPS OF WATER. PUT PT BACK ON BIPAP AFTER BEING ON VAPOTHERM, O2 SAT AT 74%. WILL CONT TO MONITOR.
--- NOTE | 2019-06-14 17:00 | NUR ---
ASSISSTED PT TO BEDPAN, NO NEEDS OR DISTRESS NOTED AT THIS TIME. VSS. WILL CONT TO MONITOR.
--- NOTE | 2019-06-14 19:00 | NUR ---
ASSESSMENT COMPLETED. RR RUNNING 30-40 AND LAST NIGHT RUNNING 20-24. OXYGEN ON BIPAP UP TO 100% PER RT. CRACKLES CONT TO BASE BILATERAL LOBES. BILATERAL FEET 1+ PITTING EDEMA, ELEVATED LEGS. CALL LIGHT IN REACH. NO NEEDS VOICED.
--- NOTE | 2019-06-14 20:52 | MORECARE ---
CASE MANAGEMENT DISCHARGE SUMMARY PATIENT: ISAAC RICARDO UNIT: [id number] ADM DATE: 06/10/19 AGE: 73 : 43 SEX: F ROOM/BED: D.2307 AUTHOR: TOMAS,DOC PHYSICIAN: REFERRING PHYSICIAN: KHAI FLORENCE MD DATE OF SERVICE: 06/14/19 Discharge Plan Patient Name: ISAAC RICARDO Facility: [facility]:[place] : 1945 Planned Disposition: Home Anticipated Discharge Date: Discharge Date: Expected LOS: Initial Reviewer: [email or web address] Initial Review Date: 06/14/2019 Generated: 06/14/19 9:51 pm Comments DCP- Discharge Planning Updated by [email or web address]: Evelyne Cohen on 06/14/19 7:[address] Patient Name: ISAAC RICARDO Admission Status: ER Accout number: [id number] Admission Date: 06-10-2019 : 1945 Admission Diagnosis: Attending: NAAMN, Current LOS: 4 Anticipated DC Date: Planned Disposition: Home Primary Insurance: MEDICARE A & B Discharge Planning Comments: CM met with patient to complete initial dc planning assessment. CM educated patient on the CM role and verbal consent given by patient to complete assessment. Patient lives at home with her where she is independent with her care. At discharge patient plans to return home and feels this is a safe discharge. CM discussed availability of home health, rehab services, and medical equipment. Patient may need walk test for home 02 upon discharge. Patient denied known discharge needs at this time. CM will continue to follow and will assist as needed with dc plans/needs. Guard Lieutenant: Evelyne Cohen DCPIA - Discharge Planning Initial Assessment Updated by [email or web address]: Evelyne Cohen on 06/14/19 8:47 pm * Is the patient Alert and Oriented? Yes * How many steps to enter\exit or inside your home? * PCP MENDEZ DENISE * Pharmacy [facility] * Preadmission Environment Home with Family * ADLs Independent * Other Equipment WALKER, W/C * List name and contact numbers for known caregivers / representatives who currently or will assist patient after discharge: JACKIE RICARDO - - [phone] * Verbal permission to speak to the caregivers and representatives has been obtained from the patient. Yes * Community resources currently utilized None * Additional services required to return to the preadmission environment? No * Can the patient safely return to the preadmission environment? Yes * Has this patient been hospitalized within the prior 30 days at any hospital? No Patient Name: ISAAC RICARDO Page [id number] at 2051 All edits/amendments must be made on the electronic document DICTATION DATE: 06/14/192050 CONSULTANT RN: RUTHY 06/14/192050 RPT#: [id number] DC DATE: STATUS: ADM IN [facility] [address] [place] [address] END OF REPORT
--- NOTE | 2019-06-14 21:00 | NUR ---
HELD ALL PO MEDICATIONS FOR 2099. PATIENT CANNOT TOLERATE BIPAP BEING OFF AT ALL. PRODUCTIVE COUGHING, PINK SPUTUM NOTED. OXYGEN DROPPING TO 80-89% AND RR CONTS TO BE 35-50. PATIENT C/O ANXIETY AND ONLY HAVE ORDER FOR PO XANAX. NOTIFIED DR. ALTAMIRANO, NEW ORDERS ABG AND PRN ATIVAN. ABG WAS COMPLETED BY RT AND CALLED INTO DR. ALTAMIRANO. NO NEW ORDERS. PULSE OX UP TO 96% AFTER RECOVERING APPROX 5 MINS ON 100% BIPAP. ATIVAN GIVEN PER ORDERS. LAB CALLED WITH [facility] + COCCI IN BLOOD CULTURES, PLACED ON CONTACT ISOLATION.
--- NOTE | 2019-06-14 23:00 | NUR ---
LAYING IN BED. PT CONTS TO BE RESTLESS AND TRY TO GET OOB. BED ALARM ON. DENIES ANY NEEDS AT THIS TIME.
[2019-06-15] VITALS (24 sets, daily range): BP systolic 113–164; BP diastolic 56–96
--- NOTE | 2019-06-15 01:00 | NUR ---
LAYING IN BED, EYES CLOSED. BIPAP STILL AT 100% OXYGEN. VSS. CALL LIGHT IN REACH, FALL ALARM ON.
--- NOTE | 2019-06-15 03:00 | NUR ---
LAYING IN BED WITH EYES CLOSED. BIPAP IN USE AT 100% OXYGEN. VSS, CALL LIGHT IN REACH.
[2019-06-15 04:01] LABS: BASOPHILS 0 % (0-2); EOSINOPHILS 0 % (0-7); HEMATOCRIT 29.2 % (36.0-48.0); HEMOGLOBIN 9.1 g/dL (12-16); IMMATURE GRANULOCYTES 0.6 % (0-5); LYMPHOCYTES 3.1 % (15-50); MCH 27.7 pg (26.0-34.0); MCHC 31.2 g/dL (31.0-37.0); MEAN PLATELET VOLUME 10.3 fL (7.4-10.4); MONOCYTES 4.6 % (2-11); NEUTROPHILS 91.7 % (40-80); PLATELET COUNT 273 10x3/uL (130-400); RBC 3.28 10x6/uL (4.00-5.40); WBC 19.6 10x3/uL (4.8-10.8)
[2019-06-15 04:47] LABS: ANION GAP 11.4 mmol/L (8-16); CALCIUM 8.9 mg/dL (8.5-10.1); CARBON DIOXIDE 25.7 mmol/L (21.0-32.0); MAGNESIUM - SERUM 2.4 mg/dL (1.8-2.4); PHOSPHOROUS 2.6 mg/dL (2.5-4.9); POTASSIUM - SERUM 4.1 mmol/L (3.5-5.1)
--- NOTE | 2019-06-15 05:07 | NUR ---
LAYING IN BED. VOIDED VIA BEDPAN. PULSE OX DROPPED TO 84%. TOOK APPROX 3 MINS TO RECOVER. BIPAP STILL ON AT 100% OXYGEN. CALL LIGHT IN REACH. DENIES ANY NEEDS
--- NOTE | 2019-06-15 05:22 | NUR ---
SPOKE WITH DR. ALTAMIRANO. NEW ORDER FOR VALENCIA CATHETER D/T PREVIOUS EPISODE OF DESAT WHILE ON BEDPAN. UNABLE TO TOLERATE ANY MOVEMENT OR ACTIVITY AT THIS TIME.
--- NOTE | 2019-06-15 06:36 | NUR ---
14F INDWELLING VALENCIA CATHETER INSERTED WITHOUT DIFFICULTY USING MAIL CLERK. PULSE OX DROPPED TO 88% ON 100% BIPAP BUT DID RECOVER QUICKLY TO 91-92%. URINE SPECIMEN COLLECTED AND SENT TO LAB.
--- NOTE | 2019-06-15 07:00 | NUR ---
BEDSIDE REPORT RECEIEVED. ASSESSMENT COMPLETED PER FLOWSHEET, SEE FLOWSHEET FOR INFORMATION. PT RESTING IN BED WITH EYES CLOSED. NO NEEDS OR DISTRESS NOTED AT THIS TIME. VSS. WILL CONT TO MONITOR.
--- NOTE | 2019-06-15 09:00 | NUR ---
PT IN BED RESTING WITH EYES CLOSED. NO NEEDS OR DISTRESS NOTED AT THIS TIME. VSS. WILL CONT TO MONITOR.
[2019-06-15 10:11] LABS: IMMUNOGLOBULIN A 274 mg/dL (64-422); IMMUNOGLOBULIN G 1122 mg/dL (700-1600)
--- NOTE | 2019-06-15 11:00 | NUR ---
REASSEMENT COMPLETED PER FLOWSHEET, SEE FLOWSHEET FOR INFORMATION. PT UNABLE TO TOLERATE VAPOTHERM, PT BACK ON BIPAP. VSS. WILL CONT TO MONITOR.
[2019-06-15 11:10] LABS: ANA REFLEX - ANTICHROMATIN ABS >8.0 AI (0.0-0.9); ANA REFLEX - CENTROMERE B ABS <0.2 AI (0.0-0.9); ANA REFLEX - DBL STRANDED DNA 2 IU/mL (0-9); ANA REFLEX - DIRECT Positive (Negative); ANA REFLEX - JO-1 AB <0.2 AI (0.0-0.9); ANA REFLEX - RNP ANTIBODIES <0.2 AI (0.0-0.9); ANA REFLEX - SCL-70 0.4 AI (0.0-0.9); ANA REFLEX - SJOGRENS AB SSA <0.2 AI (0.0-0.9); ANA REFLEX - SJOGRENS AB SSB <0.2 AI (0.0-0.9); ANA REFLEX - SMITH AB <0.2 AI (0.0-0.9)
--- NOTE | 2019-06-15 13:00 | NUR ---
PT FAMILY AT BEDSIDE, UPDATE GIVEN. NO NEEDS OR DISTRESS NOTED AT THIS TIME. VSS. WILL CONT TO MONITOR.
--- NOTE | 2019-06-15 15:00 | NUR ---
REASSESSMENT COMPLETED PER FLOWSHEET, SEE FLOWSHEET FOR INFORMATION. PT IN BED RESTING WITH EYES CLOSED. 1500 MEDICATIONS GIVEN. NO NEEDS OR DISTRESS NOTED AT THIS TIME. VSS. WILL CONT TO MONITOR.
--- NOTE | 2019-06-15 17:00 | NUR ---
PT FAMILY AT BEDSIDE, UPDATE GIVEN. PT DID NOT TOLERATE BEING ON VAPOTHERM, O2 DECREASED TO 68%. PUT PT BACK ON BIPAP. VSS. WILL CONT TO MONITOR.
--- NOTE | 2019-06-15 19:00 | NUR ---
SHIFT ASSESSMENT COMPLETE. PT IS A&O X4 WITH NO COMPLAINTS OF PAIN. SHE STATES THAT HER MOUTH IS DRY. BIPAP REMOVED, ORAL CARE PROVIDED, PT TOLERATED WELL. BIPAP ON @ 14/7, 100%, RR SHALLOW, DIMINISHED BREATH SOUNDS HEARD BILAT THROUGHOUT ALL LOBES. S1S2 AUDIBLE, HR 86 CONTROLLED A-FIB SHOWING ON MONITOR. B/L UPPER EXT HAVE BRUISING AND SCABS NOTED. R HAND PIV INFUSING CARDIZEM @ 10 MG/HR (10 ML/HR) AND D5 1/2 NS @ 50 ML/HR. R AC PIV S/L, SWAB CAPS IN PLACE, IV TUBING LABELED. ABD FLAT, NONTENDER TO TOUCH. VALENCIA CATH INTACT DRAINING CONCENTRATED URINE. GENERALIZED EDEMA NOTED IN UPPER EXT. +2 PITTING EDEMA IN LOWER EXT, SCDS ON AND FUNCTIONING, HEELS BRIDGED. REPOSITIONED FOR COMFORT. CALL LIGHT IN REACH, NO FURTHER FINDINGS AT THIS TIME. WILL CONT TO MONITOR CLOSELY.
--- NOTE | 2019-06-15 19:21 | NUR ---
CALLED REGARDING CARDIZEM DRIP, NO NEW ORDERS AT THIS TIME. VSS. WILL CONT TO MONITOR.
--- NOTE | 2019-06-15 21:00 | NUR ---
PT IS UNABLE TO TAKE PO MEDICATION. REMOVED BIPAP AND PLACED ON VAPOTHERM, ORAL CARE PROVIDED. PT WAS TAKING SIPS OF WATER AND CHOKED. O2 DESAT TO 70%, PT RECOVERED FROM COUGHING. BIPAP BACK ON. O2 SAT WNL. WILL CONT CLOSE MONITORING IN ICU.
--- NOTE | 2019-06-15 21:48 | NUR ---
SPOKE WITH FLIIPPO BLANDON APRN R/T INCREASING BP. NEW ORDERS RECIEVED.
--- NOTE | 2019-06-15 23:00 | NUR ---
REASSESSMENT COMPLETE. ORAL CARE PROVIDED. REPOSITIONED FOR COMFORT. NO CHANGES FROM PREVIOUS ASSESSMENT. VSS. CALL LIGHT IN REACH, SHE DENIES ANY NEEDS AT THIS TIME. WILL CONT CLOSE MONITORING.
[2019-06-16] VITALS (40 sets, daily range): BP systolic 124–187; BP diastolic 60–105
--- NOTE | 2019-06-16 01:00 | NUR ---
PT RESTING WITH NO SIGNS OF ACUTE DISTRESS NOTED. VSS. CALL LIGHT IN REACH, BED IN LOWEST POSITION. WILL CONT WITH POC.
--- NOTE | 2019-06-16 03:00 | NUR ---
REASSESSMENT COMPLETE. NO CHANGES IN PT CONDITION. VSS. CALL LIGHT IN REACH, BED IN LOWEST POSITION. SEE FLOWSHEET FOR FURTHER DETAILS. WILL CONT WITH POC.
[2019-06-16 03:58] LABS: ANION GAP 11.5 mmol/L (8-16); BILIRUBIN - TOTAL 0.78 mg/dL (0.2-1.3); CALCIUM 8.9 mg/dL (8.5-10.1); CARBON DIOXIDE 27.1 mmol/L (21.0-32.0); MAGNESIUM - SERUM 2.5 mg/dL (1.8-2.4); PHOSPHOROUS 2.2 mg/dL (2.5-4.9); POTASSIUM - SERUM 3.6 mmol/L (3.5-5.1); PROTEIN - SERUM 6.9 g/dL (6.4-8.2)
[2019-06-16 04:04] LABS: HEMATOCRIT 31.9 % (36.0-48.0); HEMOGLOBIN 9.9 g/dL (12-16); MCH 27.5 pg (26.0-34.0); MCV 88.6 fL (80.0-100.0); MEAN PLATELET VOLUME 10.6 fL (7.4-10.4); PLATELET COUNT 269 10x3/uL (130-400); RDW 16.3 % (11.5-14.5); WBC 20.4 10x3/uL (4.8-10.8)
[2019-06-16 04:41] LABS: LYMPHOCYTES 8 % (15-50); NEUTROPHILS 92 % (40-80)
[2019-06-16 04:44] LABS: PLATELET ESTIMATE NORMAL
--- NOTE | 2019-06-16 05:00 | NUR ---
CHG BATH, COMPLETE LINEN CHANGE, VALENCIA CARE AND ORAL CARE PROVIDED. PT TOLERATED WELL. CALL LIGHT IN REACH, BED IN LOWEST POSITION. WILL CONT WITH POC.
--- NOTE | 2019-06-16 06:34 | NUR ---
CALLED PHARMACY FOR 15mM SODIUM PHOS.
--- NOTE | 2019-06-16 07:54 | NUR ---
REPORT RECIEVED. RESPIRATORY SWTICHED PATIENT OVER TO VAPOTHERM. PATIENT SATTING 95%. MORNING MEDS GIVEN PER MAR. NO CHOKING WHEN DRINKING WATER. PATIENT TOLERATED HALF OF MORNING MEDS AND GOT SHORT OF BREATH. VSS. SEE MAR TO SEE WHICH MEDS GIVEN. WILL SPEAK WITH DOC TO SEE IF VIBRAMYCIN MAY BE SWITCHED TO IV. LUNGS DIMINISHED BILAT. PULSES PALP. SKIN PALE. DRY MOUTH. ORAL CARE PROVIDED. PATIENT TURNED. WILL CONTINUE TO MONITOR.
--- NOTE | 2019-06-16 08:21 | NUR ---
Nutrition follow-up: NPO due to BIPAP and quickly desating if taken off. Labs reviewed Wt: 171# 2+ pitting edema bilateral lower extremeties Pt is now assessed with severe malnutrition of acute illness R/T pneumonia AEB: 1. < 50% intake of estimated energy needs for > 5 days 2. Moderate/severe fluid accumulation 2+pitting edema to bilateral lower extremeties 3. 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 Recommend PEG tube placement due to not safe for NGT 2/[address]AP[address] RDN following.
--- NOTE | 2019-06-16 09:35 | NUR ---
RESP TURNED DOWN BIPAP FROM 80 TO 100%.
--- NOTE | 2019-06-16 11:30 | NUR ---
patient afebrile. no distress. see assessment. no changes. family at bedside. guest candy ordered for spouse. approved by girish perry.
--- NOTE | 2019-06-16 12:40 | NUR ---
Nutrition consult: Received verbal order from Dr. Garner in the IDT meeting to begin TPN. Chart reviewed. Spoke with pharmacy; still no Na acetate available TPN and lab Orders entered. RDN following.
--- NOTE | 2019-06-16 13:25 | NUR ---
at bedside. patient turned. line placed. no distress. bipap 80 %. will continue to monitor
--- NOTE | 2019-06-16 15:00 | NUR ---
PT RESTING IN BED, BIPAP IN PLACE. AT BEDSIDE, DENIES ANY NEEDS AT THIS TIME, CALL LIGHT WITHIN REACH, WILL CONT TO FOLLOW POC
--- NOTE | 2019-06-16 16:45 | NUR ---
PT RESTING IN BED, VSS AND WNL. BIPAP IN PLACE. SPOUSE AT BEDSIDE, CALL LIGHT WITHIN REACH, DENIES ANY NEEDS AT THIS TIME,WILL CONT TO FOLLOW POC
--- NOTE | 2019-06-16 17:25 | NUR ---
FAMILY AT BEDSIDE. PATIENT IS ALERT AND ORIENTED. NO ACUTE DISTRESS. NO CHANGES FROM ASSESSMENT.
--- NOTE | 2019-06-16 18:07 | NUR ---
PT RESTING IN BED, FAMILY AT BEDSIDE. VSS AND WNL. BIPAP IN PLACE. WILL CONT TO FOLLOW POC
--- NOTE | 2019-06-16 19:00 | NUR ---
PT RESTING IN BED. BEDSIDE REPORT RECEIVED FROM DAY SHIFT NURSE. SHIFT ASSESSMENT COMPLETED. VSS. NO COMPLAINTS NOTED AT THIS TIME. FAMILY AT BEDSIDE. WILL CONTINUE TO MONITOR
--- NOTE | 2019-06-16 21:00 | NUR ---
PT RESTING IN BED. STATES SHE FEELS LIKE SHE CANNOT BREATH. INCREASES BIPAP OXYGEN TO 100 PERCENT. PT UNABLE TO REMOVE BIPAP FOR PO MEDS. CANNOT TOLERATE WITHOUT DESAT. WILL CONTINUE TO MONITOR
[2019-06-16 21:06] LABS: MYCOPLASMA PNEUMO IGG <100 U/mL (0-99)
--- NOTE | 2019-06-16 21:15 | NUR ---
PT GIVEN GEODON TO HELP REDUCE ANXIETY AND SLOW BREATHING. WILL CONTINUE TO MONITOR RESPIRATORY STATUS
--- NOTE | 2019-06-16 21:55 | NUR ---
DR ALTAMIRANO PAGED TO PROVIDE UPDATE CONCERNING PT. AWAITING CALL BACK
--- NOTE | 2019-06-16 23:15 | NUR ---
DR ALTAMIRANO PAGED AGAIN REGARDING RESPIRATORY STATUS. AWAITING CALL BACK
--- NOTE | 2019-06-16 23:43 | NUR ---
G OBTAINED BY STEFANI EPPERSON DECIDED TO INFORM PROPERTY AND SUPPLY OFFICER PULMONARY DRCaesar OF RESULTS.
[2019-06-17] VITALS (34 sets, daily range): BP systolic 90–162; BP diastolic 46–96
--- NOTE | 2019-06-17 00:10 | NUR ---
SON ARRIVED AND JOINED SPOUSE AT BEDSIDE. FAMILY DECIDED TO INTUBATE PT.
--- NOTE | 2019-06-17 00:13 | NUR ---
DR BHARDWAJ CALLED REGARDING ABG VALUES AND FAMILY WISHES TO INTUBATE PT. ORDERS RECEIVED TO INTUBATE AND VENT BUNDLE.
--- NOTE | 2019-06-17 00:24 | NUR ---
DR SALGUERO AT BEDSIDE READY TO INTUBATE. SUCCINCHOLINE GIVEN
--- NOTE | 2019-06-17 00:29 | NUR ---
PT INTUBATED. COLOR CHANGE NOTED IN CAPNOGRAPHY. CHEST RISE AND FALL ON BAGGING. CHEST XRAY ORDERED.
--- NOTE | 2019-06-17 00:40 | NUR ---
ORDER RECEIVED FROM DR SALGUERO TO GIVE 100 MCG OF FENTANYL AND START A PROPOFOL DRIP. PROPOFOL STARTED AT 5
--- NOTE | 2019-06-17 01:04 | NUR ---
PT FAMILY DECIDED TO MAKE PT A DNR. DNR ORDER RECEIVED FROM DR QUINTEROS.
--- NOTE | 2019-06-17 03:00 | NUR ---
PT RESTING IN BED SEDATED. FAMILY AT BEDSIDE. VSS. NO SIGNS OF DISTRESS NOTED AT THIS TIME. REASSESSMENT COMPLETED. WILL CONTINUE TO MONITOR
[2019-06-17 04:05] LABS: BASOPHILS 0.1 % (0-2); EOSINOPHILS 0 % (0-7); HEMATOCRIT 30.4 % (36.0-48.0); HEMOGLOBIN 9.3 g/dL (12-16); IMMATURE GRANULOCYTES 2.9 % (0-5); LYMPHOCYTES 4.2 % (15-50); MCH 27.5 pg (26.0-34.0); MCHC 30.6 g/dL (31.0-37.0); MCV 89.9 fL (80.0-100.0); MEAN PLATELET VOLUME 10.6 fL (7.4-10.4); MONOCYTES 3.6 % (2-11); NEUTROPHILS 89.2 % (40-80); PLATELET COUNT 198 10x3/uL (130-400); RBC 3.38 10x6/uL (4.00-5.40); RDW 17.2 % (11.5-14.5); WBC 28.8 10x3/uL (4.8-10.8)
[2019-06-17 04:13] LABS: ANION GAP 14.2 mmol/L (8-16); CALCIUM 8.6 mg/dL (8.5-10.1); CARBON DIOXIDE 23.6 mmol/L (21.0-32.0); CREATININE - SERUM 1.2 mg/dL (0.6-1.3); MAGNESIUM - SERUM 2.4 mg/dL (1.8-2.4); POTASSIUM - SERUM 3.8 mmol/L (3.5-5.1)
[2019-06-17 04:15] LABS: PHOSPHOROUS 3.2 mg/dL (2.5-4.9)
--- NOTE | 2019-06-17 05:00 | NUR ---
PT RESTING IN BED. SEDATED. VSS. NO VISIBLE SIGNS OF DISTRESS NOTED. FAMILY AT BEDSIDE. WILL CONTINUE TO MONITOR
--- NOTE | 2019-06-17 06:35 | NUR ---
DR QUINTEROS CALLED REGARDING CRITICAL LAB VALUES. ORDERS RECEIVED TO START HIGH RESISTANCE SLIDING SCALE.
--- NOTE | 2019-06-17 06:51 | NUR ---
DR QUINTEROS CALLED AGAIN TO CLARIFY ORDER. DR QUINTEROS REQUESTED TO STICK WITH SAME ORDER
--- NOTE | 2019-06-17 08:16 | NUR ---
Nutrition follow-up: Pt intubated now; sedated with propofol Intralipids discontinued Glucose extremely elevated; insulin scale adjusted Recommend starting TF via OGT/NGT of Pulmocare @ 25 ml/hr Recommend discontinuing TPN RDN following
--- NOTE | 2019-06-17 08:24 | NUR ---
0700 IN BED SEDATED ON PROPOFOL AT 30 UNITSD/HOUR UNABLE TO FOLLOW COMMANDS SPOUSE REMAINS AT BEDSIDE ASSESSMENT COMPLETE ORAL AND FACIAL CARE PROVIDED CARDIZEM INFUSING AT 5MG, D5 1/2 INFUSING AT 30 ML/HR, TPN AT 50ML/HR
--- NOTE | 2019-06-17 08:27 | NUR ---
0800 CBS 324
--- NOTE | 2019-06-17 08:29 | NUR ---
0830 OGT PLACEMENT WITHOUT DIFFICULTY VERIFIED PLACEMENT WITH 20ML AIR BOLUS. ORDERED ABD XRAY FOR PLACEMENT
--- NOTE | 2019-06-17 10:07 | NUR ---
0916 STARTED INSULIN GTT AT 7.8
--- NOTE | 2019-06-17 10:08 | NUR ---
1000 O2 ON VENT DECREASED TO 90% PER RT SATING 99%. SPOUSE WENT HOME PATIENTS SON REMAINS AT BEDSIDE
--- NOTE | 2019-06-17 12:44 | NUR ---
1200 D5 1/2NS STOPPED PER ORDER
--- NOTE | 2019-06-17 14:47 | NUR ---
1205 DR BHARDWAJ MADE CHANGES TO VENT AC 14 PEEP 10 TV 550 FIO2 50
--- NOTE | 2019-06-17 14:50 | NUR ---
1300 OGT PLACEMENT VERIFIED BY ABDOMINAL XRAY
--- NOTE | 2019-06-17 14:57 | NUR ---
1400 STARTED TF PULMOCAR 1.5 AT 25ML/HR AND FLUSH AT 10ML/HOUR
--- NOTE | 2019-06-17 19:15 | NUR ---
PT SEDATED, ETT IN PLACE AND PATENT TO VENT, LUNGS CLEAR, OGT IN PLACE WITH PULMOCARE @ 25 CC/HR, RIGHT PICC INTACT WITH MULTI IVF'S INFUSING, RIGHT PIV X2 INTACT AND PATENT, BILAT SWR IN USE, VALENCIA PATENT TO BSD, SCD'S TO BILAT LOWER LEGS, @ BEDSIDE, VITALS STABLE
[2019-06-17 20:06] LABS: IMMUNOGLOBULIN E 68 IU/mL (6-495)
--- NOTE | 2019-06-17 20:07 | NUR ---
1600 HEART RATE 60S STOPPED CARDIZEM GTT
--- NOTE | 2019-06-17 20:08 | NUR ---
1800 SPOUSE AND SON AT BEDSIDE EMOTIONAL SUPPORT GIVEN
--- NOTE | 2019-06-17 21:00 | NUR ---
PT REMAINS SEDATED, REPOSITIONED FOR COMFORT, WILL CONT TO MONITOR
--- NOTE | 2019-06-17 23:06 | NUR ---
NO CHANGE IN STATUS, REPOSITIONED, VITALS REMAIN STABLE
[2019-06-18] VITALS (24 sets, daily range): BP systolic 108–155; BP diastolic 46–102
--- NOTE | 2019-06-18 01:00 | NUR ---
PT SEDATED, ETT IN PLACE AND PATENT TO VENT, REPOSITIONED FOR COMFORT, TOLERATING TUBE FEEDS @ THIS TIME, WILL CONT TO MONITOR
--- NOTE | 2019-06-18 03:15 | NUR ---
PT BATHED PER STAFF, REMAINS SEDATED, TOLERATED WELL, SMALL AMOUNT OF BLEEDING AND BLOOD CLOTS FROM VAGINA NOTED, WILL CONT TO MONITOR
[2019-06-18 04:52] LABS: HEMATOCRIT 28.1 % (36.0-48.0); HEMOGLOBIN 8.7 g/dL (12-16); MCH 27.7 pg (26.0-34.0); MCV 89.5 fL (80.0-100.0); MEAN PLATELET VOLUME 11.9 fL (7.4-10.4); PLATELET COUNT 125 10x3/uL (130-400); RBC 3.14 10x6/uL (4.00-5.40); RDW 18.1 % (11.5-14.5); WBC 28.5 10x3/uL (4.8-10.8)
[2019-06-18 04:53] LABS: LYMPHOCYTES 3 % (15-50); MONOCYTES 2 % (2-11); NEUTROPHILS 92 % (40-80); PLATELET ESTIMATE NORMAL
[2019-06-18 04:55] LABS: ANION GAP 9.6 mmol/L (8-16); CALCIUM 8.7 mg/dL (8.5-10.1); CARBON DIOXIDE 28.4 mmol/L (21.0-32.0); CREATININE - SERUM 1.5 mg/dL (0.6-1.3); MAGNESIUM - SERUM 2.4 mg/dL (1.8-2.4); PHOSPHOROUS 2.9 mg/dL (2.5-4.9)
--- NOTE | 2019-06-18 05:15 | NUR ---
PT REMAINS SEDATED, WITHDRAWS TO PAIN, VITALS STABLE, ON VENT, WILL CONT TO MONITOR
--- NOTE | 2019-06-18 08:06 | NUR ---
DR. QUINTEROS NOTIFIED OF HR BEING 90S TO 120S A-FIB. INFORMED HIM THAT CARDIZEM DRIP HAD BEEN OFF SINCE YESTERDAY AT 1600. ORDERED TO RE-START CARDIZEM AT 5MG/HR.
--- NOTE | 2019-06-18 10:18 | NUR ---
INCREASED WATER FLUSH ON TUBE FEEDINGS TO 100ML Q 2HRS.
--- NOTE | 2019-06-18 11:03 | NUR ---
DR. QUINTEROS AT BEDSIDE.
--- NOTE | 2019-06-18 12:00 | NUR ---
INSULIN DRIP ADDRESSED WITH DR. QUINTEROS. ORDERED TO DISCONTINUE DRIP AND START LEVEMIR 50UNITS DAILY AND INSULIN REG HIGH RESISTANCE SLIDING SCALE.
--- NOTE | 2019-06-18 13:37 | NUR ---
PIV TO R-HAND AND R-AC DC'D AT THIS TIME.
--- NOTE | 2019-06-18 15:30 | NUR ---
RE-ASSESSMENT COMPLETED. HR INCREASED TO 130S BUT CAME BACK DOWN TO 80-100S. CONTINUES ON CARDIZEM DRIP AT 5MG/HR. CHG BATH GIVEN AT THIS TIME. BLEEDING NOTED AT R-HAND PREVIOUS IV SITE. CLEANED AND 4X4 AND MEPILEX GAUZE USE TO APPLY PRESSURE TO AREA. COMPLETE LINEN CHANGE PROVIDED. PULLED UP AND REPOSITIONED FOR COMFORT. WILL CONTINUE TO MONITOR.
--- NOTE | 2019-06-18 17:47 | NUR ---
REPOSITIONED FOR COMFORT. SON AND SPOUSE AT BEDSIDE. WILL CONTINUE TO MONITOR.
--- NOTE | 2019-06-18 19:00 | NUR ---
REPORT RECEIVED, PT SEDATED AND INTUBATED. VALENCIA IN PLACE DRAINING LIGHT YELLOW URINE. SOFT WRIST RESTRAINTS IN PLACE, PICC IN RT UPPER ARM, SEE IV FLOWSHEET. ASSESSMENT COMPLETED, SEE FLOWSHEET. WILL CONTINUE TO MONITOR.
--- NOTE | 2019-06-18 21:00 | NUR ---
REPOSITIONED, ORAL CARE PROVIDED, SPOUSE AT BEDSIDE.
--- NOTE | 2019-06-18 23:00 | NUR ---
PT SEDATED, ORAL CARE PROVIDED. NO ACUTE DISTRESS NOTED.
[2019-06-19] VITALS (45 sets, daily range): BP systolic 68–151; BP diastolic 30–88
--- NOTE | 2019-06-19 01:00 | NUR ---
ORAL CARE PERFORMED, REPOSITIONED NEEDED.
--- NOTE | 2019-06-19 03:00 | NUR ---
PT SEDATED. VITALS STABLE, NO ACUTE DISTRESS NOTED.
--- NOTE | 2019-06-19 03:10 | NUR ---
ICE PACKS PLACED UNDER GROIN AND AXILLARY FOR TEMP OF 101.7
--- NOTE | 2019-06-19 05:00 | NUR ---
PT SEDATED, SPOUSE AT BEDSIDE. WILL CONTINUE TO MONITOR.
[2019-06-19 05:44] LABS: ANION GAP 10.9 mmol/L (8-16); CALCIUM 7.9 mg/dL (8.5-10.1); CARBON DIOXIDE 28.7 mmol/L (21.0-32.0); MAGNESIUM - SERUM 2.4 mg/dL (1.8-2.4); PHOSPHOROUS 3.5 mg/dL (2.5-4.9); POTASSIUM - SERUM 3.6 mmol/L (3.5-5.1)
[2019-06-19 06:07] LABS: CREATININE - SERUM 1.9 mg/dL (0.6-1.3)
[2019-06-19 06:44] LABS: BASOPHILS 0.8 % (0-2); EOSINOPHILS 0 % (0-7); HEMATOCRIT 28.1 % (36.0-48.0); HEMOGLOBIN 8.7 g/dL (12-16); LYMPHOCYTES 4.5 % (15-50); MCH 28.1 pg (26.0-34.0); MCV 90.6 fL (80.0-100.0); MEAN PLATELET VOLUME 11.5 fL (7.4-10.4); MONOCYTES 5.1 % (2-11); NEUTROPHILS 82.6 % (40-80); PLATELET COUNT 118 10x3/uL (130-400); RDW 18.6 % (11.5-14.5); WBC 31.5 10x3/uL (4.8-10.8)
--- NOTE | 2019-06-19 07:15 | NUR ---
PT RESTING IN BED, FAMILY AT BEDSIDE. VSS AT THIS TIME. BILATERAL WRIST RESTRAINTS IN PLACE. WILL CONT TO FOLLOW POC
--- NOTE | 2019-06-19 08:15 | NUR ---
PT RESTING IN BED, VSS AND WNL. FAMILY AT BEDSIDE, WILL CONT TO FOLLOW POC
--- NOTE | 2019-06-19 09:45 | NUR ---
PT HAD A LARGE, TAR COLORED BM. NEW ORDER OBTAINED TO OBTAIN A STOOL SAMPLE FOR OCCULT BLOOD. FULL LINEN CHANGE PROVIDED AND CHG BATH PROVIDED. WILL CONT TO FOLLOW POC
[2019-06-19 10:09] LABS: THYROGLOBULIN ANTIBODY <1.0 IU/mL (0.0-0.9); THYROID PEROXIDASE ABS 9 IU/mL (0-34)
--- NOTE | 2019-06-19 10:15 | NUR ---
HERE AND GAVE VERBAL ORDER TO D/C DENNIS AND SATNAM DIAL DUE TO NOT BEING ABLE TO CRUSH MEDICATIONS. NEW ORDER FOR FRANCHESCA RECIEVED
--- NOTE | 2019-06-19 10:35 | NUR ---
PT OG RESITDUAL IS 0ML. INCREASED TF FROM 35ML/HR TO 40ML/HR. WILL CONT TO FOLLOW POC
[2019-06-19 11:17] LABS: PLATELET ESTIMATE DECREASED
[2019-06-19 11:18] LABS: ANISOCYTOSIS OCC; POLYCHROMASIA OCC; SCHISTOCYTES OCC
--- NOTE | 2019-06-19 12:00 | NUR ---
PT HAD A LARGE LOOSE TAR COLORED BM. BUTCH CARE PROVIDED. PT REPOSITIONED IN BED, FAMILY AT BEDSIDE, WILL CONT TO FOLLOW POC
--- NOTE | 2019-06-19 12:56 | NUR ---
Nutrition follow-up: Pt is now intubated Pulmocare infusing @ 40 ml/hr goal rate at this time Pt is currently tolerating Labs reviewed Wt: 181# +BM, loose RDN following.
--- NOTE | 2019-06-19 13:00 | NUR ---
PT RESTING IN BED, FAMILY AT BEDSIDE. VSS AND WNL. SEDATION OFF AT THIS TIME. PT HAS YET TO RESPOND TO STIMULI. BED ALARM ON AND TESTED. WILL CONT TO FOLLOW POC
--- NOTE | 2019-06-19 14:15 | NUR ---
PT RESTING IN BED, VSS AND WNL. SEDATION OFF AT THIS TIME. CALL LIGHT WITHIN REACH. WILL CONT TO FOLLOW POC
--- NOTE | 2019-06-19 16:00 | NUR ---
PT RESTING IN BED, FAMILY AT BEDSIDE. VSS AND WNL. WILL CONT TO FOLLOW POC
--- NOTE | 2019-06-19 17:49 | NUR ---
BUTCH CARE PROVIDED AND PT REPOSITIONED. SOFT WRIST RESTRAINTS IN PLACE. VSS AND WNL. WILL CONT TO FOLLOW POC
--- NOTE | 2019-06-19 18:13 | NUR ---
NOTIFIED THAT PT BP IS TRENDING DOWN. NEW ORDER RECIEVED TO DECREASE CARDIZEM FROM 10 TO 7.5
--- NOTE | 2019-06-19 18:57 | NUR ---
PT BP DROPPING INTO THE 80S SYSTOLIC. NOTIFIED . NEW ORDERS RECIEVED FOR 500CC NS BOLUS AND PLACE CARDIZEM ON HOLD.
--- NOTE | 2019-06-19 19:15 | NUR ---
PT UNRESPONSIVE, ETT PATENT TO VENT, LUNGS COARSE, OGT IN PLACE WITH PULMOCARE @ 40 CC/HR, RIGHT PICC INTACT WITH NS BOLUS INFUSING, GENERALIZED EDEMA, VALENCIA PATENT TO BSD, SCD'S TO BILAT LOWER LEGS, @ BEDSIDE, B/P REMAINS LOW, WILL CONT TO MONITOR
--- NOTE | 2019-06-19 19:45 | NUR ---
CALLED DR QUINTEROS, INFORMED OF B/P 83/43 AFTER NS BOLUS, ORDERS RECIEVED
--- NOTE | 2019-06-19 20:00 | NUR ---
INITIATED LEVOPHED GTT @ 5 MCG/MIN, WILL CONT TO MONITOR
--- NOTE | 2019-06-19 20:35 | NUR ---
STAT ABGS ORDERED, RT TO BEDSIDE TO DRAW ABGS
--- NOTE | 2019-06-19 20:40 | NUR ---
ABG RESULTS CALLED TO DR QUINTEROS, ORDERS RECIEVED, STAT H&H DRAWN, SPECIMEN TAKEN TO LAB
[2019-06-19 21:19] LABS: HEMATOCRIT 22.6 % (36.0-48.0); HEMOGLOBIN 6.8 g/dL (12-16); MCH 28.6 pg (26.0-34.0); MCHC 30.1 g/dL (31.0-37.0); MEAN PLATELET VOLUME 12.9 fL (7.4-10.4); PLATELET COUNT 124 10x3/uL (130-400); RBC 2.38 10x6/uL (4.00-5.40); RDW 19.1 % (11.5-14.5); WBC 34.8 10x3/uL (4.8-10.8)
[2019-06-19 22:09] LABS: LYMPHOCYTES 8 % (15-50); NEUTROPHILS 82 % (40-80); PLATELET ESTIMATE NORMAL
--- NOTE | 2019-06-19 22:55 | NUR ---
BEGAN BLOOD TRANSFUSION, TEMP 100.5 AX, B/P STABLE WITH LEVOPHED @ 11MCG/MIN, WILL CONT TO MONITOR
[2019-06-20] VITALS (84 sets, daily range): BP systolic 68–120; BP diastolic 00–84
--- NOTE | 2019-06-20 01:30 | NUR ---
BEGAN TRANSFUSING 2ND UNIT PRBC, VITALS STABLE, UOP REMAINS LOW, WILL CONT TO MONITOR
--- NOTE | 2019-06-20 03:40 | NUR ---
TRANSFUSION COMPLETED, VITALS STABLE, AT BEDSIDE, NO UOP NOTED, WILL CONT TO MONITOR
--- NOTE | 2019-06-20 05:19 | NUR ---
PT REMAINS UNRESPONSIVE, WEANING LEVOPHED, VITALS STABLE, AT BEDSIDE
[2019-06-20 05:33] LABS: APTT 48.2 SECONDS (22.8-39.4)
[2019-06-20 05:53] LABS: MAGNESIUM - SERUM 2.8 mg/dL (1.8-2.4)
[2019-06-20 06:03] LABS: HEMATOCRIT 31.1 % (36.0-48.0); HEMOGLOBIN 9.7 g/dL (12-16); MCH 29.7 pg (26.0-34.0); MCHC 31.2 g/dL (31.0-37.0); MCV 95.1 fL (80.0-100.0); PLATELET COUNT 81 10x3/uL (130-400); RBC 3.27 10x6/uL (4.00-5.40); RDW 17.1 % (11.5-14.5)
[2019-06-20 06:06] LABS: WBC 55.1 10x3/uL (4.8-10.8)
[2019-06-20 06:07] LABS: INR 10.47 (0.85-1.17); PROTIME 81.9 SECONDS (11.6-15.0)
[2019-06-20 06:08] LABS: D-DIMER-QUANTITATIVE 11.1 ug/mLFEU (0.20-0.54)
[2019-06-20 06:37] LABS: ANION GAP 20.5 mmol/L (8-16); CARBON DIOXIDE 20.7 mmol/L (21.0-32.0); PHOSPHOROUS 8.1 mg/dL (2.5-4.9); POTASSIUM - SERUM 4.2 mmol/L (3.5-5.1)
--- NOTE | 2019-06-20 06:43 | NUR ---
CRITICAL LABS CALLED TO DR QUINTEROS, ORDERED STAT CT ABDOMEN AND PELVIS
--- NOTE | 2019-06-20 07:00 | NUR ---
RECEIVED BEDSIDE REPORT ON PATIENT AND ASSUMED CARE OF PATIENT. PATIENT ON VENTILATOR, NOT RESPONSIVE, "DOLL EYES" NOTED, PUPILS AT 5 MM VERY SLUGGISH, CM - A-FIB RATE 104, BBS - CLEAR, DIMINISHED IN BASES, BOWEL SOUNDS ABSENT, OGT CLAMPED FOR CT SCAN OF ABDOMEN. PICC LINE IN RIGHT UPPER ARM, LEVOPHED AT 7 MCG/MIN, BICARB GTT WITH 150 MEQ AT 100 CC/HR, NS AT 10 CC/HR. AT BEDSIDE. VSS. HEAD TO TOE ASSESSMENT COMPLETED.
--- NOTE | 2019-06-20 07:30 | NUR ---
PATIENT TO CT FOR ABDOMINAL CT.
--- NOTE | 2019-06-20 07:50 | NUR ---
PATIENT BACK FROM CT.
[2019-06-20 08:39] LABS: ANISOCYTOSIS OCC; LYMPHOCYTES 9 % (15-50); MONOCYTES 11 % (2-11); NEUTROPHILS 70 % (40-80); PLATELET ESTIMATE DECREASED; POLYCHROMASIA OCC
--- NOTE | 2019-06-20 09:30 | NUR ---
DR. QUINTEROS AT ROOM UPDATED AND EXAMINES PATIENT. ORDERS PLACED.
--- NOTE | 2019-06-20 10:00 | NUR ---
PATIENTS AND SON ASKING ABOUT HIS 'S [place] RING. WAS INSTRUCTED BY NIGHT CHARGE NURSE THAT THE NIGHT NURSE HAD GIVEN THE RING ONCE REMOVED TO THE . STATES THAT HE DID NOT RECIEVE THE RING, RING IS NOT ON HUSBANDS PERSON, SON CHECKED ALL HIS POCKETS AND RING IS NOT IN ROOM NOR IN PATIENTS MEDICATION CASSETTE. CHARGE NURSE NOTIFIED OF INCIDENT AND ICU DIRECTOR AWARE.
--- NOTE | 2019-06-20 10:30 | NUR ---
OGT TO LOW INTERMITTENT WALL SUCTION, NOTED TO HAVE STOOL LIQUID RETURNING, APPROXIMATELY - 400 CC.
--- NOTE | 2019-06-20 10:46 | NUR ---
COMMISSION FOR THE BLIND DIRECTOR WITH RENTAL AT ROOM UPDATED AND EXAMINES PATIENT. SPEAKS AT LENGTH WITH PATIENTS AT BEDSIDE.
--- NOTE | 2019-06-20 11:00 | NUR ---
REASSESSMENT COMPLETE. VSS. AT BESIDE. TURNED AND REPOSITIONED IN BED.
[2019-06-20 11:10] LABS: ALBUMIN 1.8 g/dL (3.4-5.0); ANION GAP 26.1 mmol/L (8-16); BILIRUBIN - TOTAL 2.56 mg/dL (0.2-1.3); CARBON DIOXIDE 16.7 mmol/L (21.0-32.0); CREATININE - SERUM 3.5 mg/dL (0.6-1.3); POTASSIUM - SERUM 4.8 mmol/L (3.5-5.1); PROTEIN - SERUM 4.2 g/dL (6.4-8.2)
[2019-06-20 11:36] LABS: CALCIUM 6.8 mg/dL (8.5-10.1)
--- NOTE | 2019-06-20 12:05 | NUR ---
1/4 UNITS OF FFP STARTED INFUSING. DR. ALTAMIRANO AT ROOM UPDATED AND EXAMINES PATIENT. SPEAKS TO PATIENTS AND SON.
--- NOTE | 2019-06-20 12:20 | NUR ---
1/4 UNITS FFP COMPLETED, VSS. 2/4 UNITS OF FFP STARTED.
--- NOTE | 2019-06-20 12:45 | NUR ---
2/4 FFP UNITS COMPLETE. VSS.
--- NOTE | 2019-06-20 14:10 | NUR ---
3/4 UNIT OF FFP STARTED INFUSING, VSS. AT BEDSIDE.
--- NOTE | 2019-06-20 14:39 | NUR ---
3/4 UNIT OF FFP INFUSION COMPLETED. 4/4 UNIT OF FFP INFUSION STARTED. VSS.
--- NOTE | 2019-06-20 15:00 | NUR ---
UNIT 4/4 FFP COMPLETED. VSS. PATIENT TOLERATED WELL WITH NO S/S OF TRANSFUSION REACTION. AND SON AT BEDSIDE. TURNED AND REPOSITIONED IN BED.
[2019-06-20 15:06] LABS: APPEARANCE CLEAR (CLEAR); BILIRUBIN NEGATIVE (NEGATIVE); COLOR DK YELLOW (YELLOW); GLUCOSE NEGATIVE (NEGATIVE); KETONE NEGATIVE (NEGATIVE); NITRITE NEGATIVE (NEGATIVE); PROTEIN TRACE mg/dL (NEGATIVE); SPECIFIC GRAVITY 1.025 (1.005-1.020); UROBILINOGEN NORMAL (NORMAL)
[2019-06-20 15:07] LABS: BACTERIA MANY /hpf (NEGATIVE); RED CELLS - URINE 0-5 /hpf (0-5); WHITE CELLS - URINE OCC /hpf (NEGATIVE)
[2019-06-20 15:09] LABS: CREATININE - URINE 85.8 mg/dL (30-125)
[2019-06-20 15:11] LABS: PRO/CRE RATIO URINE 5.5 mg/g; PROTEIN - URINE 475.1 mg/dL (0.0-11.9)
--- NOTE | 2019-06-20 17:00 | NUR ---
PATIENT TURNED AND REPOSITIONED IN BED. AT BEDSIDE.
--- NOTE | 2019-06-20 19:30 | NUR ---
PT SEDATED AND INTUBATED. DOES NOT OPEN EYES OR AROUSE TO STIMULI. SHALLOW RESPIRATIONS, 50% FIO2, SPO2 95. LUNG SOUNDS DIMINISHED. UNCAFIB ON MONITOR, PERIPHERAL PULSES PRESENT. BOWEL SOUNDS ABSET. OGT TO LIWS, BROWN DRAINAGE PRESENT. VALENCIA CATH INTACT WITH SCANT BALWINDER URINE TO BEDSIDE DRAINAGE. PT REPOSITIONED WITH PROMINENCES BRIDGED. ORAL CARE PROVIDED. CPOC.
--- NOTE | 2019-06-20 21:10 | NUR ---
HS MEDS GIVEN. PT REPOSITIONED WITH PROMINENCES BRIDGED. ORAL CARE PROVIDED. VSS, ROOM VISIBLE FROM NURSES STATION. CPOC.
--- NOTE | 2019-06-20 23:30 | NUR ---
REASSESSMENT COMPLETE, SEE FLOWSHEET. PT REMAINS UNRESPONSIVE TO STIMULI. PT REPOSITIONED WITH PROMIENCES BRIDGED. ORAL CARE PROVIDED. CONTINUE TO TITRATE LEVOPHED, SEE IV DRIP FLOWSHEET. CPOC.
[2019-06-21] VITALS (58 sets, daily range): BP systolic 53–115; BP diastolic 22–89
--- NOTE | 2019-06-21 01:30 | NUR ---
PT REPOSITIONED WITH PROMINENCES BRIDGED. ORAL CARE PROVIDED. CONTINUE TO TITRATE LEVOPHED, SEE IV DRIP FLOWSHEET. CPOC.
--- NOTE | 2019-06-21 03:30 | NUR ---
REASSESMENT COMPLETE, SEE FLOWSHEET FOR ALL FINDINGS. PT UNABLE TO FOLLOW ANY COMMANDS, DOES NOT AROUSE TO STIMULI. DOES NOT MOVE EXTREMITIES X4 AGAINST GRAVITY. PT REPOSITIONED WITH PROMINENCES BRIDGED. ORAL CARE PROVIDED. CPOC.
[2019-06-21 04:18] LABS: APTT 50.5 SECONDS (22.8-39.4)
--- NOTE | 2019-06-21 04:30 | NUR ---
CRITICAL LAB VALUES VIA ABG AND AM ALDAIR RAHMAN NOTIFIED AND NEW ORDERS REC'D. SEE OCT.
[2019-06-21 04:31] LABS: ANION GAP 33.7 mmol/L (8-16); CREATININE - SERUM 4.6 mg/dL (0.6-1.3); INR 10.16 (0.85-1.17); MAGNESIUM - SERUM 3.5 mg/dL (1.8-2.4); PHOSPHOROUS 13.2 mg/dL (2.5-4.9); POTASSIUM - SERUM 5.7 mmol/L (3.5-5.1)
[2019-06-21 04:32] LABS: HEMATOCRIT 15.9 % (36.0-48.0); HEMOGLOBIN 4.9 g/dL (12-16); MCH 30.2 pg (26.0-34.0); MCHC 30.8 g/dL (31.0-37.0); MCV 98.1 fL (80.0-100.0); PLATELET COUNT 53 10x3/uL (130-400); RBC 1.62 10x6/uL (4.00-5.40); RDW 17.4 % (11.5-14.5)
--- NOTE | 2019-06-21 04:40 | NUR ---
PT FAMILY NOTIFIED AND PROVIDED WITH AN UPDATE, FAMILY STATES THEY ARE COMING TO THE HOSPITAL TO SEE PT.
--- NOTE | 2019-06-21 04:50 | NUR ---
1ST UNIT OF PRBC STARTED AT THIS TIME, TEMP 99. NURSE IN ROOM WITH PT. WILL CONTINUE TO MONITOR.
--- NOTE | 2019-06-21 05:15 | NUR ---
FAMILY AT BEDSIDE, QUESTIONS ANSWERED.
[2019-06-21 05:41] LABS: LYMPHOCYTES 19 % (15-50); MONOCYTES 4 % (2-11); NEUTROPHILS 42 % (40-80); PLATELET ESTIMATE DECREASED
--- NOTE | 2019-06-21 05:45 | NUR ---
SECOND UNIT OF PRBC STARTED, NO S/S OF REACTION. NURSE IN ROOM WITH PATIENT.
--- NOTE | 2019-06-21 05:50 | NUR ---
PT REPOSITIONED WITH PROMINENCES BRIDGED, ORAL CARE PROVIDED. PARTIAL LINEN CHANGE COMPLETE. CPOC.
--- NOTE | 2019-06-21 06:16 | NUR ---
3RD UNIT OF PRBC STARTED, NURSE IN ROOM WITH PT. NO S/S OF REACTION AT THIS TIME.
--- NOTE | 2019-06-21 07:19 | NUR ---
BEDSIDE REPORT COMPLETED. 3/3 UNIT PRBC COMPLETED AT THIS TIME. SHIFT ASSESSMENT PERFORMED. SPOUSE AT BEDSIDE. WILL CONT TO FOLLOW POC
--- NOTE | 2019-06-21 07:41 | NUR ---
1/4 UNIT OF FFP STARTED. FAMILY AT BEDSIDE. WILL CONT TO FOLLOW POC
--- NOTE | 2019-06-21 08:17 | NUR ---
FSBS 55. AND BP STAYING IN THE 80S SYSTOLIC. NOTIFIED . NEW ORDER RECIEVED TO OBTAIN STAT H&H AND COAGS. IV PUSH 2 AMPS OF CAGLUCONATE, INFUSE D10 AT 30ML/HR, RAPID INFUSE 500ML OF NS AND ALL BLOOD PRODUCTS.
--- NOTE | 2019-06-21 08:25 | NUR ---
2/2 FFP INFUSING AT THIS TIME, VSS. FAMILY AT BEDSIDE, WILL CONT TO FOLLOW POC
--- NOTE | 2019-06-21 08:42 | NUR ---
PT FSBS 45. NOTIFIED . NEW ORDERS RECIEVED TO GIVE 1 AMP OF D50, INCREASE D10 TO 50ML/HR. OBTAIN STAT CMP.
--- NOTE | 2019-06-21 08:43 | NUR ---
Nutrition follow-up: Inutbated NPO; NGT->LIWS Labs reviewed Pt with ileus No recommendations at this time RDN following.
[2019-06-21 08:58] LABS: HEMATOCRIT 23.4 % (36.0-48.0); HEMOGLOBIN 7.4 g/dL (12-16)
[2019-06-21 09:07] LABS: CARBON DIOXIDE 13.3 mmol/L (21.0-32.0); CREATININE - SERUM 3.6 mg/dL (0.6-1.3); PROTIME 58.8 SECONDS (11.6-15.0)
[2019-06-21 09:08] LABS: INR 6.89 (0.85-1.17)
[2019-06-21 09:21] LABS: BILIRUBIN - TOTAL 2.83 mg/dL (0.2-1.3); PROTEIN - SERUM 3.8 g/dL (6.4-8.2)
--- NOTE | 2019-06-21 09:30 | NUR ---
3/4 AND 4/4 UNITS OF FFP INFUSED RAPID, D10 INCREASED TO 50ML/HR. 2AMP CA GLUCONATE GIVEN ORDERED. ROBERT, [employer] STANDARDS DIRECTOR HERE AND SPOKE WITH SPOUSE ABOUT COMFORT CARE. SPOUSE IS OK WITH COMFORT CARE AT THIS TIME, PT SON, ALEKS WAS NOTIFIED TO COME TO HOSPITAL. WILL SPEAK WITH SON REGARDING COMFORT CARE WELL.
[2019-06-21 09:36] LABS: ANION GAP 33.2 mmol/L (8-16); POTASSIUM - SERUM 4.5 mmol/L (3.5-5.1)
--- NOTE | 2019-06-21 10:02 | NUR ---
HERE AND SPOKE WITH PT SON AND SPOUSE. BOTH ARE AGREEING TO TERMINALLY EXTUBATE AND PROCEED WITH COMFORT MEASURES.
--- NOTE | 2019-06-21 10:07 | NUR ---
FAMILY STATES THEY ARE READY TO HAVE ET TUBE REMOVED. PRN MS GIVEN AT THIS TIME, RT NOTIFIED
--- NOTE | 2019-06-21 10:35 | NUR ---
RT HERE TO TERMINALLY EXTUBATE PT.
--- NOTE | 2019-06-21 10:51 | NUR ---
PT STOPPED BREATHING SOON ET TUBE WAS REMOVED, ASYSTOLE PRESENT ON MONITOR. HERE ON UNIT AND PRONOUNCED AT 1040. FAMILY ASSISTED BACK INTO ROOM, FISHMAN BEING NOTIFIED
--- NOTE | 2019-06-21 11:15 | NUR ---
[facility] NOTIFIED
--- NOTE | 2019-06-21 11:50 | NUR ---
HOME HERE TO TAKE PT.
--- NOTE | 2019-06-21 13:49 | MORECARE ---
CASE MANAGEMENT DISCHARGE SUMMARY PATIENT: ISAAC RICARDO UNIT: [id number] ADM DATE: 06/10/19 AGE: 73 : 41 SEX: F ROOM/BED: D.2307 AUTHOR: TOMAS,DOC PHYSICIAN: REFERRING PHYSICIAN: KHAI FLORENCE MD DATE OF SERVICE: 06/21/19 Discharge Plan Patient Name: ISAAC RICARDO Facility: [facility]:[place] : 1945 Planned Disposition: Home Anticipated Discharge Date: Discharge Date: 06/21/2019 Expected LOS: Initial Reviewer: [email or web address] Initial Review Date: 06/14/2019 Generated: 06/21/19 2:48 pm DCP- Discharge Planning Updated by [email or web address]: Evelyne Cohen on 06/14/19 7:[address] Patient Name: ISAAC RICARDO Admission Status: ER Accout number: [id number] Admission Date: 06-10-2019 : 1945 Admission Diagnosis: Attending: NAMAN, Current LOS: 4 Anticipated DC Date: Planned Disposition: Home Primary Insurance: MEDICARE A & B Discharge Planning Comments: CM met with patient to complete initial dc planning assessment. CM educated patient on the CM role and verbal consent given by patient to complete assessment. Patient lives at home with her where she is independent with her care. At discharge patient plans to return home and feels this is a safe discharge. CM discussed availability of home health, rehab services, and medical equipment. Patient may need walk test for home 02 upon discharge. Patient denied known discharge needs at this time. CM will continue to follow and will assist as needed with dc plans/needs. Battery Checker: Evelyne Cohen DCPIA - Discharge Planning Initial Assessment Updated by [email or web address]: Evelyne Cohen on 06/14/19 8:47 pm * Is the patient Alert and Oriented? Yes * How many steps to enter\exit or inside your home? * PCP [facility]ENDEZ DENISE * [facility] * Preadmission Environment Home with Family * ADLs Independent * Other Equipment WALKER, W/C * List name and contact numbers for known caregivers / representatives who currently or will assist patient after discharge: JACKIE RICARDO - - [phone] * Verbal permission to speak to the caregivers and representatives has been obtained from the patient. Yes * Community resources currently utilized None * Additional services required to return to the preadmission environment? No * Can the patient safely return to the preadmission environment? Yes * Has this patient been hospitalized within the prior 30 days at any hospital? No Last DP export: 06/14/19 7:52 p Patient Name: ISAAC RICARDO Page [id number] at 1349 All edits/amendments must be made on the electronic document DICTATION DATE: 06/21/19 1348 VESSEL SLAG WORKER: RUTHY 06/21/19 1348 RPT#: [id number] DC DATE:06/21/19 STATUS: DIS IN [facility] [address] [place] [address] END OF REPORT
--- NOTE | 2019-06-26 11:41 | NUR ---
Per CMS protocol, restraint report logged into data base.
== END 2019-06-21 12:20 | DRG 870 ==
LOC: D.ER 11:03 → D.M2 12:42 → D.ICU 12:42 → D.M2 20:18 → D.ICU 06-13 13:19
PROVIDERS: Family Medicine; Internal Medicine Nephrology; Internal Medicine Pulmonary Disease; ADMIT Family Medicine; ATTEND Family Medicine
PROC: 05HY33Z Insertion of Infusion Device into Upper Vein, Percutaneous Approach (ICD-10-PCS; 2019-06-16)
PROC: 5A1955Z Respiratory Ventilation, Greater than 96 Consecutive Hours (ICD-10-PCS; principal; 2019-06-17)
PROC: 0BH17EZ Insertion of Endotracheal Airway into Trachea, Via Natural or Artificial Opening (ICD-10-PCS; 2019-06-17)
DX: A41.9 Sepsis, unspecified organism (principal); J18.1 Lobar pneumonia, unspecified organism; J96.01 Acute respiratory failure with hypoxia; G93.41 Metabolic encephalopathy; R65.21 Severe sepsis with septic shock; K72.00 Acute and subacute hepatic failure without coma; N39.0 Urinary tract infection, site not specified; E87.2 Acidosis; N17.9 Acute kidney failure, unspecified; E87.0 Hyperosmolality and hypernatremia; K56.7 Ileus, unspecified; I25.10 Atherosclerotic heart disease of native coronary artery without angina pectoris; I48.91 Unspecified atrial fibrillation; Z86.73 Personal history of transient ischemic attack (TIA), and cerebral infarction without residual deficits; F32.9 Major depressive disorder, single episode, unspecified; D50.9 Iron deficiency anemia, unspecified; T46.2X5A Adverse effect of other antidysrhythmic drugs, initial encounter; R00.0 Tachycardia, unspecified; E78.5 Hyperlipidemia, unspecified; Z79.01 Long term (current) use of anticoagulants; E83.42 Hypomagnesemia; E05.90 Thyrotoxicosis, unspecified without thyrotoxic crisis or storm; J47.9 Bronchiectasis, uncomplicated; Z66 Do not resuscitate; R53.81 Other malaise; E16.2 Hypoglycemia, unspecified; D69.6 Thrombocytopenia, unspecified